=== PATIENT | female | born 1960 | race Caucasian/White ===

== ENCOUNTER → 2016-05-02 | Outpatient (CLI) | payer BC ==
[~2016-05-02] MED LIST: HYDR-3714 PO; REVIEWED
--- NOTE | 2016-05-02 15:51 | DIAGNOSTIC IMAGING REPORT ---
KUB CLINICAL HISTORY: N20.0 nephrocalcinosis COMPARISON STUDY: 01/12/2015 FINDINGS: Findings a rather wide. Diffuse nephrocalcinosis. Given differences in technique this appears similar. No significant calcifications in the para vertebral region or within the soft tissue pelvic region IMPRESSION: Bilateral nephrocalcinosis unchanged from the prior exam. Nonobstructive bowel pattern. Electronically signed by: Kaushal Eldridge M.D. 05/02/2016 3:49 PM Dictated Date/Time: 05/02/2016 3:48 PM
== END | disposition home or self-care (01) ==
LOC: C.RAD 15:21
PROVIDERS: ATTEND Urology
DX: N20.0 Calculus of kidney (principal)

== ENCOUNTER → 2016-06-14 | Outpatient (CLI) | payer BC ==
--- NOTE | 2016-06-14 16:52 | MAMMOGRAPHY REPORT ---
BILATERAL DIGITAL SCREENING MAMMOGRAM TOMOSYNTHESIS WITH CAD: 06/14/2016 CLINICAL HISTORY: Routine screening. Patient has no complaints. TECHNIQUE: Breast tomosynthesis in addition to standard 2D mammography was performed. Current study was also evaluated with a Computer Aided Detection (CAD) system. COMPARISON: Comparison is made to exams dated: 06/14/2015 mammogram, 06/08/2014 mammogram, 04/15/2013 mammogram, 04/14/2012 mammogram, 04/12/2011 mammogram, and 04/11/2010 mammogram - [facility]. BREAST COMPOSITION: The tissue of both breasts is heterogeneously dense, which may obscure small ma sses. FINDINGS: No suspicious masses, calcifications, or areas of architectural distortion are noted in e ither breast. There has been no significant interval change compared to prior exams. Scattered bilat eral benign-appearing calcifications are not significantly changed. IMPRESSION: ACR BI-RADS CATEGORY 2: BENIGN There is no mammographic evidence of malignancy. A 1 year screening mammogram is recommended. The p atient will receive written notification of the results. Approximately 10% of breast cancers are not detected with mammography. A negative mammographic repor t should not delay biopsy if a clinically suggestive mass is present. Savannah Ortiz M.D. ah/:06/14/2016 16:26:55 Material Chaser: Iqra NUNEZ)(M), [facility] letter sent: Normal 1/2 BI-RADS Code: ACR BI-RADS Category 2: Benign
== END | disposition home or self-care (01) ==
LOC: C.MAMM 15:33
PROVIDERS: ATTEND Obstetrics & Gynecology
DX: Z12.31 Encounter for screening mammogram for malignant neoplasm of breast (principal)

== ENCOUNTER → 2017-06-17 | Outpatient (CLI) | payer BC ==
--- NOTE | 2017-06-18 12:45 | MAMMOGRAPHY REPORT ---
BILATERAL DIGITAL SCREENING MAMMOGRAM TOMOSYNTHESIS WITH CAD: 06/17/2017 CLINICAL HISTORY: Routine screening. Patient has no complaints. TECHNIQUE: Breast tomosynthesis in addition to standard 2D mammography was performed. Current study was also evaluated with a Computer Aided Detection (CAD) system. COMPARISON: Comparison is made to exams dated: 06/14/2016 mammogram, 06/14/2015 mammogram, 06/08/2014 m ammogram, 04/15/2013 mammogram, 04/14/2012 mammogram, and 04/12/2011 mammogram - [facility]. BREAST COMPOSITION: The tissue of both breasts is heterogeneously dense, which may obscure small mas ses. FINDINGS: The parenchymal pattern is unchanged. No developing mass, architectural distortion or clus ter of suspicious microcalcifications is seen in either breast. There are stable benign calcificatio ns in both breasts. IMPRESSION: ACR BI-RADS CATEGORY 2: BENIGN There is no mammographic evidence of malignancy. A 1 year screening mammogram is recommended. The pa tient will receive written notification of the results. Approximately 10% of breast cancers are not detected with mammography. A negative mammographic report should not delay biopsy if a clinically suggestive mass is present. Jayda Pastor M.D. ay/:06/17/2017 15:34:17 Production Control Technologist: Roxana NUNEZ)(M), [facility] letter sent: Normal 1/2 BI-RADS Code: ACR BI-RADS Category 2: Benign
== END | disposition home or self-care (01) ==
LOC: C.MAMM 13:58
PROVIDERS: ATTEND Obstetrics & Gynecology
DX: Z12.31 Encounter for screening mammogram for malignant neoplasm of breast (principal)

== ENCOUNTER → 2017-06-25 | Outpatient (CLI) | payer BC | END | disposition home or self-care (01) | LOC: C.PAPS 13:43 | PROVIDERS: ATTEND Obstetrics & Gynecology | DX: Z01.419 Encounter for gynecological examination (general) (routine) without abnormal findings (principal) ==

== ENCOUNTER 2021-03-09 07:59 | Inpatient (IN) ==
[2021-03-09] MEDS ORDERED: SODIUM CHLORIDE 0.9% 500 ML IV ONE (08:15)
[2021-03-09 08:36] LABS: Basophils # (auto) 0.03 K/uL (0-0.2); Basophils % (auto) 0.3 %; Eosinophils # (auto) 0.14 K/uL (0-0.5); Eosinophils % (auto) 1.2 %; Hematocrit (blood only) 48.2 % (37-47); Hemoglobin 15.4 g/dL (12.0-16.0); Immature Granulocytes # (auto) 0.03 K/uL (0.00-0.02); Immature Granulocytes % (auto) 0.3 %; Lymphocytes # (auto) 1.66 K/uL (1.2-3.4); Lymphocytes % (auto) 14.5 %; Mean Corpuscular Hemoglobin 30.8 pg (25-34); Mean Corpuscular Volume 96.4 fL (80-100); Mean Platelet Volume 10.5 fL (7.4-10.4); Monocytes # (auto) 0.58 K/uL (0.11-0.59); Monocytes % (auto) 5.1 %; Neutrophils # (auto) 9.01 K/uL (1.4-6.5); Neutrophils % (auto) 78.6 %; Platelet Count 219 K/uL (130-400); RDW Coefficient of Variation 16.4 % (11.5-14.5); White Blood Count 11.45 K/uL (4.8-10.8)
--- NOTE | 2021-03-09 08:37 | XRay Report ---
XR chest 1V portable CLINICAL HISTORY: Chest Pain. Weakness for 5 days COMPARISON STUDY: 01/02/2019 TECHNIQUE: 1 view of the chest FINDINGS: Single frontal view of the chest demonstrates the cardiomediastinal silhouette to be within normal li mits. The lungs are clear of alveolar opacities. There is no evidence for pleural effusion. There is no evidence for vascular congestion. There is no acute osseous pathology. IMPRESSION: No acute cardiopulmonary disease. ACT 112: Negative or not required by law. Electronically signed by: Calvin House M.D. 03/09/2021 8:36 AM
[2021-03-09 09:03] LABS: Troponin I 7.26 ng/ml (0-0.04)
[2021-03-09 09:04] LABS: Albumin Globulin Ratio 1.5 (0.9-2); Albumin Level 4.5 gm/dl (3.4-5.0); BUN Creatinine Ratio 17.9 (10-20); Bilirubin,Total 1.3 mg/dl (0.2-1.0); Calcium 10.3 mg/dl (8.5-10.1); Creatinine Clr Calc Pharmacy 65.4 ml/min; Est GFR (African American) 62.7 ml/min; Est GFR (Non-African American) 54.1 ml/min; Magnesium 2.1 mg/dl (1.7-2.4); Phosphorus 3.3 mg/dl (2.5-4.9); Potassium 4.1 mmol/L (3.5-5.1); Total Protein 7.5 gm/dl (6.0-8.3)
[2021-03-09] MEDS ORDERED: ASPIRIN CHEW 324 MG PO STA (09:13)
[2021-03-09] MEDS ORDERED: OPTIRAY 320 125ml IV ONE (09:43)
--- NOTE | 2021-03-09 10:07 | CT Scan Report ---
CT ANGIOGRAPHY OF THE CHEST, PULMONARY EMBOLUS PROTOCOL CLINICAL HISTORY: Chest pain, shortness of breath, recent back surgery, r/o PE COMPARISON STUDY: Chest radiograph performed earlier today. Chest radiograph January 02, 2019. TECHNIQUE: Following IV administration of 120 mL of Optiray, helical axial images of the chest were o btained utilizing the pulmonary embolus protocol. Maximal intensity projections and sagittal and cor onal reformats were viewed on an independent 3D workstation. IV contrast was administered without co mplication. Automated exposure control was utilized for the study. A dose lowering technique was ut ilized adhering to the principles of ALARA. CT DOSE: 884.41 mGy.cm FINDINGS: No pulmonary emboli are identified. Moderate cardiomegaly is noted. There is no pericardia l effusion. Prominent right hilar lymph nodes are noted. Note is made of alveolar opacities within th e right lower lobe. There are also mild groundglass opacities within the right upper and right middle lobes as well as the left lung. There is no pneumothorax or pleural effusion. Central airways are pa tent. No acute fracture or suspicious lesion is identified within visualized portions of the bony tho rax. A 2.1 cm caudate lobe lesion was shown on prior studies. This is likely benign. IMPRESSION: 1. No pulmonary emboli identified. 2. Alveolar opacities within the right lower lobe and mild groundglass opacities within the remainder of the lungs. The findings represent an infectious process. 3. Prominent right hilar lymph nodes which are likely reactive. 4. Moderate cardiomegaly. ACT 112: Negative or not required by law. Electronically signed by: Jef Sanchez M.D. 03/09/2021 10:06 AM
[2021-03-09] MEDS ORDERED: NITROGLYCERIN SL 0.4 MG/TAB TAB ONE (10:13)
[2021-03-09] MEDS ORDERED: NITROGLYCERIN 2% OINTMENT 30GM TUBE ONE ×2 (10:16→22:29)
[2021-03-09] MEDS ORDERED: HEPARIN SOD (PORCINE) 1000 UNIT/ML ONE (10:20)
[2021-03-09] MEDS ORDERED: TICAGRELOR 90 MG TAB PO ONE ×2 (10:31→10:35)
[2021-03-09] MEDS ORDERED: HEPARIN SOD (PORCINE) 1000 UNIT/ML IV ONE (10:31)
[2021-03-09] MEDS ORDERED: cefTRIAXone SODIUM 2,000 MG/70 ML BAG IV STA (10:33)
[2021-03-09] MEDS ORDERED: FUROSEMIDE INJ 20 MG/2 ML VIAL IV ONE (10:33)
[2021-03-09] MEDS ORDERED: FUROSEMIDE 40 MG/4 ML VIAL IV ONE (10:35)
--- NOTE | 2021-03-09 11:02 | History & Physical Report ---
Date of Service March 09, 2021 Assessment & Plan (1) Acute HF (heart failure): Plan: Discussed with ICU given NSTEMI and heart failure requiring BiPAP with BP still not well controlled; discussed with Dr Eid and will start nitroglycerin IV drip and admit to ICU Unknown EF TTE ordered Lasix 40mg IV given in ER, continue this preliminarily daily but adjust per I&Os Nitroglycerin IV drip as below. Strict I&Os Daily weights (2) Non-ST elevation (NSTEMI) myocardial infarction: Plan: ASA and Brillinta given in the ER. Continue aspirin 81mg PO daily and Brilinta 90mg PO BID Heparin IV bolus given in ER, will add low dose IV drip (notably ordered without bolus as separate order done for this in ER) Metoprolol and lisinopril as below Increase atorvastatin from 20 to 80mg PO daily. Prior LDL 132 in August Lipid panel and HbA1C with AM labs (3) Acute respiratory failure with hypoxia: Plan: Suspect secondary to heart failure as above. Continue BIPAP/CPAP per ICU management pending improvement in fluid status. NPO for now. Rx for acute heart failure as above (4) Sinus tachycardia: Plan: Suspect compensatory from heart failure as above. Monitor on telemetry for arrhythmia in setting of NSTEMI (5) Hypertension: Plan: Lisinopril and metoprolol succinate taken this morning. Will continue her usual dosing of these in addition to nitro drip and furosemide as above. (6) Morbid obesity: Plan: Noted Plan: VTE Prophyalxis - Heparin IV drip as above Diet - NPO until improvement in respiratory status Disposition - admit to ICU Admission and Anticipated Discharge Date Admission Date: March 08, 2021 History of Present Illness Chief Complaint: Chest pain Primary Care Provider: Michelle Bowden MD Coby Zavala is a 60 year old female who presents to the ER with chest pain. She reports intermittent substernal chest pain radiating to the back for the last week lasting 10-15 minutes. Severity 10/10 at worst. Associated shortness of breath wheezing on lying flat. Exacerbated by exertion and lying flat. She denies any fever, chills or cough. She denies any history of heart attacks or stroke. No prior smoking history. In the ER after lying flat for the CT she became acutely worse with shortness of breath and chest pain and was placed on BiPAP, she was also initially given a 500ml NSS bolus. Since then after starting on BiPAP, Lasix and nitro paste she is currently chest pain free when seen. Initial troponin I elevated at 7.26 ng/ml. She was referred to medicine for admission and ongoing management of NSTEMI and acute heart failure. Allergies Allergy/AdvReac Type Severity Reaction Status Date / Time amoxicillin Allergy Intermediate Rash Verified 03/09/21 11:16 ampicillin Allergy Intermediate Rash Verified 03/09/21 11:16 Penicillins Allergy Intermediate Rash Verified 03/09/21 11:16 Home Medications Medication Instructions Recorded Confirmed Type multivitamin 1 tab PO QAM 03/10/20 03/09/21 History cholecalciferol (vitamin D3) 50 50 mcg PO DAILY 05/30/20 03/09/21 History mcg (2,000 unit) capsule atorvastatin 20 mg tablet 20 mg PO QPM #90 tab 09/13/20 03/09/21 Rx lisinopril 40 mg tablet 40 mg PO DAILY #90 tab 12/07/20 03/09/21 Rx metoprolol succinate 100 mg 100 mg PO DAILY #30 tab 12/15/20 03/09/21 Rx tablet,extended release 24 hr potassium citrate 10 mEq (1,080 10 meq PO BID #180 tab 02/13/21 03/09/21 Rx mg) tablet,extended release calcium carbonate 600 mg calcium 600 mg PO BID 03/09/21 03/09/21 History (1,500 mg) tablet (Calcium) gabapentin 300 mg capsule 300 mg PO QAM 03/09/21 03/09/21 History Past Med/Surg History Medical History Degenerative disc disease, lumbar Diverticular disease Elevated hemoglobin A1c Gout Hyperlipidemia Hypertension Kidney stones Lesion of liver Lumbar disc herniation Menopause Personal history of gout Polyarthritis Skin candidiasis Ureteral calculi Surgical History BCC (basal cell carcinoma of skin) H/O lithotripsy History of dilatation and curettage History of repair of rotator cuff History of tooth extraction S/P ankle joint replacement S/P foot surgery, right S/P left knee surgery Family History Father BCC (basal cell carcinoma of skin) Mother Bronchiectasis Brother Hypertension Grandmother (Maternal) Diabetes Other No family history of adverse response to anesthesia Denies family history of Ovarian cancer Prostate cancer Myocardial infarction Breast cancer Colorectal cancer Social History Smoking Status: Never smoker Second Hand Exposure: No; Hx Alcohol Use: No Hx Substance Use: No Preferred Language: Danish Communication Ability: Effective Visual Impairment: Limited Hearing Ability: Normal 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 Beliefs That Will Affect Care: None marital status: Single Current Living Situation: Alone current occupational status: retired Feels Safe at Home: Yes Dental Care, Regularly: Yes Seatbelt Use: always Assistive Devices: Contacts and Glasses Review of Systems Review of Systems: All systems reviewed & are unremarkable except as noted in HPI & below Physical Exam Constitutional: well developed and + acute distress (respiratory); + not well nourished Eyes: + anicteric sclerae; normal pupil size ENMT: external ear and nose normal, oropharynx normal Neck: trachea midline, no thyromegaly Respiratory: + respiratory distress, + retractions, + uses accessory muscles, + cough (occasional), able to speak in complete sentences (short) and + tachypneic; expiratory phase not prolonged, no audible wheezes and no stridor Auscultation: + rhonchi (throughout); no diminished lung sounds and no wheezes Cardiovascular: Rate/Rhythm: regular rhythm and + tachycardic Heart Sounds: no murmur Vessels: posterior tibial pulses present, dorsalis pedis pulses present and radial pulses present Extremities: normal capillary refill and + pedal edema (trace pre-tibial); no calf tenderness Gastrointestinal (Abdomen): Inspection/Auscultation: normal bowel sounds Percussion/Palpation: abdomen soft; abdomen nontender, no guarding and abdomen not rigid Musculoskeletal: no cyanosis or clubbing, extremities motor strength 5/5 Skin: no rashes, warm and dry Neurologic: moves all extremities and awake; not confused Psychiatric: A+Ox3, euthymic affect Results & Data Results & Data ([facility]) Vital Signs (Past 12 Hours) Vital Signs Temp Pulse Pulse Resp BP BP Pulse Ox 03/09/21 10:19 105 H 34 H 99 03/09/21 09:54 98 H 89 19 128/93 96 03/09/21 08:06 36.9 C 94 H 20 158/98 H 95 Laboratory Results Abnormal lab results 03/09/21 03/09/21 03/09/21 Range/Units 08:30 08:30 10:38 WBC 11.45 H (4.8-10.8) K/uL Hct 48.2 H (37-47) % RDW Std Deviation 58.0 H (36.4-46.3) fL RDW Coeff of Michelle 16.4 H (11.5-14.5) % MPV 10.5 H (7.4-10.4) fL Neut # (Auto) 9.01 H (1.4-6.5) K/uL Immature Gran # (Auto) 0.03 H (0.00-0.02) K/uL Glucose 126 H (70-99(Fasting)) mg/dl Calcium 10.3 H (8.5-10.1) mg/dl Total Bilirubin 1.3 H (0.2-1.0) mg/dl AST 63 H (13-39) U/L ALT 54 H (7-52) U/L Troponin I 7.26 H* (0-0.04) ng/ml B-Natriuretic Peptide 766 H (0-100) pg/ml Diagnostic Findings XR chest 1V portable CLINICAL HISTORY: Chest Pain. Weakness for 5 days COMPARISON STUDY: 01/02/2019 TECHNIQUE: 1 view of the chest FINDINGS: Single frontal view of the chest demonstrates the cardiomediastinal silhouette to be within normal limits. The lungs are clear of alveolar opacities. There is no evidence for pleural effusion. There is no evidence for vascular congestion. There is no acute osseous pathology. IMPRESSION: No acute cardiopulmonary disease. CT ANGIOGRAPHY OF THE CHEST, PULMONARY EMBOLUS PROTOCOL CLINICAL HISTORY: Chest pain, shortness of breath, recent back surgery, r/o PE COMPARISON STUDY: Chest radiograph performed earlier today. Chest radiograph January 02, 2019. TECHNIQUE: Following IV administration of 120 mL of Optiray, helical axial images of the chest were obtained utilizing the pulmonary embolus protocol. Maximal intensity projections and sagittal and coronal reformats were viewed on an independent 3D workstation. IV contrast was administered without complication. Automated exposure control was utilized for the study. A dose lowering technique was utilized adhering to the principles of ALARA. CT DOSE: 884.41 mGy.cm FINDINGS: No pulmonary emboli are identified. Moderate cardiomegaly is noted. There is no pericardial effusion. Prominent right hilar lymph nodes are noted. Note is made of alveolar opacities within the right lower lobe. There are also mild groundglass opacities within the right upper and right middle lobes as well as the left lung. There is no pneumothorax or pleural effusion. Central airways are patent. No acute fracture or suspicious lesion is identified within visualized portions of the bony thorax. A 2.1 cm caudate lobe lesion was shown on prior studies. This is likely benign. IMPRESSION: 1. No pulmonary emboli identified. 2. Alveolar opacities within the right lower lobe and mild groundglass opacities within the remainder of the lungs. The findings represent an infectious process. 3. Prominent right hilar lymph nodes which are likely reactive. 4. Moderate cardiomegaly. Medications Administered ER Medications Given: NSS 500ml bolus Aspirin 324mg PO Nitroglycerin 2% 1 inch patch heparin IV bolus 5000 IU Brilinta 180mg PO Ceftriaxone 2g IV (ordered but cancelled by myself prior to being given) ECG Findings: + other (T wave flattening laterally), + RBBB (incomplete), + ST depression (Lateral) and + T-wave inversion (Anterior) Comparison ECG Date: from (Jan 02, 2019) Change: the following changes noted (ischaemic changes as above are new) Code Status & VTE Plan Code Status Full VTE Prophylaxis Plan VTE Prophylaxis will be ordered: Yes PG Care Time/CCT Total # of Minutes Spent Total Time Spent with Patient: Total time spent is greater than 50% in coordination of care (as documented) at patient's floor/unit and/or counseling patient: Coding Level of Care Code 05172 Initial Inpt Care Lvl 3 Diagnoses Acute respiratory failure with hypoxia J96.01 Sinus tachycardia R00.0 Hypertension I10 Acute HF (heart failure) I50.9 Non-ST elevation (NSTEMI) myocardial infarction I21.4 Morbid obesity E66.01
[2021-03-09] MEDS ORDERED: STAT IV Infusion **Titration per Protocol STA (11:08)
[2021-03-09] MEDS ORDERED: Heparin IV Adult Wt-Based Low-Dose *NO* Bolus Protocol IV SCH (11:12)
[2021-03-09] MEDS ORDERED: HEPARIN SODIUM/DEXTROSE 25,000 UNITS/500 ML BAG IV SCH (11:15)
[2021-03-09] MEDS ORDERED: NITROGLYCERIN/D5W 100MCG/ML 250 ML IV SCH (11:15)
--- NOTE | 2021-03-09 11:16 | Cardiology Consultation ---
Date of Consultation March 09, 2021 Assessment & Plan (1) Non-ST elevation (NSTEMI) myocardial infarction: (2) Acute HF (heart failure): (3) Hypertension: (4) Sinus tachycardia: (5) Hyperlipidemia: ASSESSMENT/PLAN: 1. NSTEMI: Has had intermittent symptoms consistent with angina for the past week with more problems episode today. Currently chest pain free after nitroglycerin administration. Has received full-dose aspirin, Brilinta, heparin bolus. Took her daily dose of beta-karolina at home. Recommend high-intensity statin therapy. Discussed cardiac catheterization but given that she remains in respiratory distress on BiPAP and is now free from angina, would recommend imp rovement in her respiratory status as she would likely require mechanical ventilation to lay flat for the procedure at this point. Risks and benefits of cardiac catheterization discussed with her in detail. She is agreeable to undergo the procedure. If recurrent angina, would recommend urgent catheterization. 2. Acute heart failure: Whether she has systolic or diastolic heart failure is not yet clear. Recommend echo. She has received intravenous diuretic in the form of Lasix 40 mg. She appears to be diuresing. Continue nitrate therapy. 3. Hypertension: Blood pressure elevated. Likely in part due to her distress. This should improve with diuresis. Can initiate nitroglycerin drip to bridge ironworker helper in blood pressure control and to help keep her angina free. Has already received her home dose of lisinopril 40 mg at home and beta-karolina. Would not further titrate beta-karolina in the setting of acute CHF decompensation. Could also consider amlodipine. 4. Sinus tachycardia: Likely due to her distress. Should improve with improvement of her respiratory status. 5. Dyslipidemia: Recommend high-intensity statin therapy by further titrating her atorvastatin. 6. Disposition: Currently critically ill patient. Attempts were made to call her brother, Nilesh, as she was agreeable for him to be updated. Unfortunately, he did not answer his phone and there was no capability of leaving a message. Dr. Edmond of the admitting hospitalist service was contacted and we discussed patient care and plan. He plans on admitting her to the ICU for close monitoring. She has stated that she would like her brother, Nilesh Zavala, to make medical decisions for her if she is unable to do so. Addendum: Preliminary review of echo demonstrated large LAD wall motion abnormality. Revisited patient in the emergency department. She remained chest pain-free. BiPAP was removed and she was on mask. She was no longer short of breath. She was able to lay flat without shortness of breath or significant oxygen desaturation. We once again discussed cardiac catheterization and she wished very much to complete it today. Risks and benefits were once again discussed in detail. Cardiac catheterization to be performed today. 55 minutes of critical care time was spent evaluating, managing patient care, coordinating care, reviewing studies/chart, and attempting to contact family. History of Present Illness Reason for Consultation: NSTEMI Requesting Physician: Dr. Aguirre Attending Physician: Dr. Edmond History of Present Illness Ms. Zavala is a very pleasant 60-year-old female with a history significant for hypertension and dyslipidemia who presented to the emergency department on 03/09/2021 with chest pain and shortness of breath. She has been experiencing chest pain shortness of breath intermittently for the past week. Symptoms occurred with exertion and resolved within approximately 15 minutes with rest. She describes the substernal chest pain as a burning sensation that can radiate to the mid scapular area. This morning, she was awakened at approximately 5:00 a.m. with chest pain and shortness of breath. She presented to the emergency department and had an ECG performed at 8:13 a.m. which demonstrated sinus tachycardia with right bundle branch block and evidence of inferior DE. T-wave inversion was present in the anterior leads. Initial troponin was elevated at 7.26. Chest pain resolved with nitroglycerin x2 and then nitro paste. She was sent for CTA imaging by the emergency department to evaluate for pulmonary embolus and received 500 bolus of normal saline. Her respiratory status apparently worsened while laying flat for CTA. She was then given 40 mg of IV Lasix. She had received aspirin, Brilinta, and heparin bolus. Cardiology was consulted. At the time of Cardiology evaluation, she was chest pain-free following nitroglycerin. She was just receiving her Brilinta. Nursing staff reported that her oxygen saturation was in the 70s on 6 L OxyMask. She was placed on BiPAP and her oxygen saturation was 98%. Despite this, she still felt short of breath. She was notably hypertensive with systolic blood pressure in the 170s and heart rate in the 120s. She denies previous cardiac issues. She denies syncope, near-syncope, nausea, vomiting, diarrhea, melena, hematochezia, hematuria, palpitations, or fevers. She reports that her blood pressure is typically elevated in the medical setting but better controlled at home. She took her home lisinopril and metoprolol succinate today prior to coming to the emergency department. Review of systems: As above. Review of systems otherwise negative/unremarkable. Family history: No known premature CAD. Social history: She denies tobacco, alcohol, or drug abuse. She lives alone. She has not been . No children. She was unaccompanied in the emergency department. Her brother, Nilesh, is listed as her contact lens inspector. Allergies Allergy/AdvReac Type Severity Reaction Status Date / Time amoxicillin Allergy Intermediate Rash Verified 03/09/21 11:16 ampicillin Allergy Intermediate Rash Verified 03/09/21 11:16 Penicillins Allergy Intermediate Rash Verified 03/09/21 11:16 Home Medications Medication Instructions Recorded Confirmed Type multivitamin 1 tab PO QAM 03/10/20 03/09/21 History cholecalciferol (vitamin D3) 50 50 mcg PO DAILY 05/30/20 03/09/21 History mcg (2,000 unit) capsule atorvastatin 20 mg tablet 20 mg PO QPM #90 tab 09/13/20 03/09/21 Rx lisinopril 40 mg tablet 40 mg PO DAILY #90 tab 12/07/20 03/09/21 Rx metoprolol succinate 100 mg 100 mg PO DAILY #30 tab 12/15/20 03/09/21 Rx tablet,extended release 24 hr potassium citrate 10 mEq (1,080 10 meq PO BID #180 tab 02/13/21 03/09/21 Rx mg) tablet,extended release calcium carbonate 600 mg calcium 600 mg PO BID 03/09/21 03/09/21 History (1,500 mg) tablet (Calcium) gabapentin 300 mg capsule 300 mg PO QAM 03/09/21 03/09/21 History Patient History Medical History Degenerative disc disease, lumbar Diverticular disease HX Elevated hemoglobin A1c Gout Hyperlipidemia Hypertension Kidney stones Lesion of liver just monitoring Lumbar disc herniation Menopause Personal history of gout Polyarthritis Skin candidiasis Ureteral calculi Surgical History BCC (basal cell carcinoma of skin) with countless MOHS procedure H/O lithotripsy shock wave lithotripsy x5 History of dilatation and curettage History of repair of rotator cuff right History of tooth extraction S/P ankle joint replacement 03/18/19 Dr. Reno Nance at [facility], left S/P foot surgery, right plantar fascitis S/P left knee surgery Family History Father BCC (basal cell carcinoma of skin) Mother Bronchiectasis Brother Hypertension Grandmother (Maternal) Diabetes Other No family history of adverse response to anesthesia Denies family history of Ovarian cancer Prostate cancer Myocardial infarction Breast cancer Colorectal cancer Social History Smoking Status: Never smoker Second Hand Exposure: No; Hx Alcohol Use: No Hx Substance Use: No Preferred Language: American Communication Ability: Effective Visual Impairment: Limited Hearing Ability: Normal Wood Chopper Required: No Beliefs That Will Affect Care: None marital status: Single Current Living Situation: Alone current occupational status: retired Feels Safe at Home: Yes Dental Care, Regularly: Yes Seatbelt Use: always Assistive Devices: Contacts and Glasses Physical Exam Physical Exam: Gen.: Mild respiratory distress on BiPAP. Alert and oriented. HEENT: Anicteric sclera. Neck: Thick neck. Cardiac: PMI was nonpalpable. No ventricular heave. Regular and tachycardic. Heart sounds difficult to auscultate given coarse breath weighs sounds. No audible murmurs, rubs, or gallops. Pulmonary: Bilateral crackles throughout. Abdomen: Soft, nontender, nondistended, with normoactive bowel sounds. No bruits noted. Extremities: 2+ radial pulses bilaterally. 2+ posterior tibialis pulses bilaterally. 1+ bilateral lower extremity edema. No cyanosis. Psychiatric: Affect appears appropriate. Results & Data ([facility]) Vital Signs (Past 12 Hours) Vital Signs Temp Pulse Pulse Resp BP BP Pulse Ox 03/09/21 11:00 116 H 30 H 163/111 H 98 03/09/21 10:55 122 H 28 H 165/110 H 98 03/09/21 10:50 125 H 31 H 178/117 H 98 03/09/21 10:45 124 H 40 H 188/118 H 97 03/09/21 10:40 120 H 34 H 181/115 H 03/09/21 10:35 124 H 32 H 161/114 H 99 03/09/21 10:30 121 H 34 H 157/98 H 99 03/09/21 10:25 113 H 29 H 152/96 H 99 03/09/21 10:20 102 H 35 H 169/113 H 99 03/09/21 10:19 105 H 34 H 99 03/09/21 10:00 90 27 H 158/109 H 90 03/09/21 09:54 98 H 89 19 128/93 96 03/09/21 09:30 91 H 23 94 03/09/21 09:00 87 19 128/93 95 03/09/21 08:31 93 H 23 135/104 H 95 03/09/21 08:30 88 20 95 03/09/21 08:20 97 H 21 94 03/09/21 08:06 36.9 C 94 H 20 158/98 H 95 Laboratory Results Laboratory Results - last 24 hr 03/09/21 03/09/21 03/09/21 08:30 08:30 08:30 WBC 11.45 H RBC 5.00 Hgb 15.4 Hct 48.2 H MCV 96.4 MCH 30.8 MCHC 32.0 RDW Std Deviation 58.0 H RDW Coeff of Michelle 16.4 H Plt Count 219 MPV 10.5 H Immature Gran % (Auto) 0.3 Neut % (Auto) 78.6 Lymph % (Auto) 14.5 [place] % (Auto) 5.1 Eos % (Auto) 1.2 Baso % (Auto) 0.3 Neut # (Auto) 9.01 H Lymph # (Auto) 1.66 [place] # (Auto) 0.58 Eos # (Auto) 0.14 Baso # (Auto) 0.03 Immature Gran # (Auto) 0.03 H PT INR Sodium 140 Potassium 4.1 Chloride 103 Carbon Dioxide 28 Anion Gap 9 BUN 20 Creatinine 1.12 Est Cr Clr Drug Dosing 65.4 Est GFR ( Amer) 62.7 Est GFR (Non-Af Amer) 54.1 BUN/Creatinine Ratio 17.9 Glucose 126 H Lactate Calcium 10.3 H Phosphorus 3.3 Magnesium 2.1 Total Bilirubin 1.3 H AST 63 H ALT 54 H Alkaline Phosphatase 71 Troponin I 7.26 H* B-Natriuretic Peptide Total Protein 7.5 Albumin 4.5 Globulin 3.0 Albumin/Globulin Ratio 1.5 Lipase 40 Procalcitonin 0.11 SARS-CoV-2 (PCR) Influenza Type A (PCR) Influenza Type B (PCR) RSV (RT-PCR) 03/09/21 03/09/21 03/09/21 10:38 10:38 10:38 WBC RBC Hgb Hct MCV MCH MCHC RDW Std Deviation RDW Coeff of Michelle Plt Count MPV Immature Gran % (Auto) Neut % (Auto) Lymph % (Auto) [place] % (Auto) Eos % (Auto) Baso % (Auto) Neut # (Auto) Lymph # (Auto) [place] # (Auto) Eos # (Auto) Baso # (Auto) Immature Gran # (Auto) PT 11.2 INR 1.1 Sodium Potassium Chloride Carbon Dioxide Anion Gap BUN Creatinine Est Cr Clr Drug Dosing Est GFR ( Amer) Est GFR (Non-Af Amer) BUN/Creatinine Ratio Glucose Lactate 1.3 Calcium Phosphorus Magnesium Total Bilirubin AST ALT Alkaline Phosphatase Troponin I B-Natriuretic Peptide 766 H Total Protein Albumin Globulin Albumin/Globulin Ratio Lipase Procalcitonin SARS-CoV-2 (PCR) Influenza Type A (PCR) Influenza Type B (PCR) RSV (RT-PCR) 03/09/21 12:36 WBC RBC Hgb Hct MCV MCH MCHC RDW Std Deviation RDW Coeff of Michelle Plt Count MPV Immature Gran % (Auto) Neut % (Auto) Lymph % (Auto) [place] % (Auto) Eos % (Auto) Baso % (Auto) Neut # (Auto) Lymph # (Auto) [place] # (Auto) Eos # (Auto) Baso # (Auto) Immature Gran # (Auto) PT INR Sodium Potassium Chloride Carbon Dioxide Anion Gap BUN Creatinine Est Cr Clr Drug Dosing Est GFR ( Amer) Est GFR (Non-Af Amer) BUN/Creatinine Ratio Glucose Lactate Calcium Phosphorus Magnesium Total Bilirubin AST ALT Alkaline Phosphatase Troponin I B-Natriuretic Peptide Total Protein Albumin Globulin Albumin/Globulin Ratio Lipase Procalcitonin SARS-CoV-2 (PCR) NEGATIVE Influenza Type A (PCR) Negative Influenza Type B (PCR) Negative RSV (RT-PCR) Negative Diagnostic Findings ECG personally reviewed 03/09/2021 at 8:13 a.m.: Sinus tachycardia 105 beats per minute. RBBB. Inferior infarct. Possible anterior infarct. When compared to prior ECG on 01/02/2019, anterior infarct and anterior T-wave inversion now present. Inferior infarct now present. CTA chest 03/09/2021: No PE per Radiology. Right lower lobe alveolar opacities. Mild ground-glass opacities remainder of lungs. Medications Administered Current Inpatient Medications Nitroglycerin/Dextrose (Nitroglycerin/D5w 100 Mcg/Ml) 250 mls @ 3 mls/hr IV .Q24H ARYAN; Protocol Stop: 04/08/21 11:14 Last Admin: 03/09/21 12:10 Dose: 5 mcg/min, 3 mls/hr Documented by: Heparin Sodium/Dextrose (Heparin Sodium/Dextrose) 25,000 units in 500 mls @ 18 mls/hr IV .Q24H ARYAN; Protocol Stop: 04/08/21 11:14 Last Admin: 03/09/21 12:12 Dose: Not Given Documented by: PG Care Time/CCT Total # of Minutes Spent Total Time Spent with Patient: Total time spent is greater than 50% in coordination of care (as documented) at patient's floor/unit and/or counseling patient: Critical Care Time: Yes Total Critical Care Time: 55 Coding Level of Care Code None Diagnoses Non-ST elevation (NSTEMI) myocardial infarction I21.4 Acute HF (heart failure) I50.9 Hypertension I10 Sinus tachycardia R00.0 Hyperlipidemia E78.5 Additional Codes Critical Care Time - Critical Care Time: Yes ([id number]) Time Spent (min) 55 Comment [id number]
--- NOTE | 2021-03-09 11:38 | Emergency Department Note ---
Impression & Plan Non-ST elevation (NSTEMI) myocardial infarction, Hypertension, Acute respiratory failure with hypoxia, Flash pulmonary edema, Exertional chest pain, Elevated troponin ED Provider Note NAME: KRISTIN CHANG AGE: 60 SEX: F ARRIVES VIA: Walk-In INFORMANT: Patient ED PROVIDER(S): Westley Aguirre MD CHIEF COMPLAINT: Chest pain with exertion PLAN: Disposition: Admit MEDICAL DECISION MAKING: The patient is a pleasant 60-year-old woman with a past medical history of hypertension, obesity, hyperlipidemia who presents to the emergency department for evaluation of chest pain/pressure and dyspnea with exertion that has developed over the past week. She reports a consistent pattern where she will feel the symptoms with exertion and then symptoms will bettie with rest. She reports she has been having the dyspneic component of the symptoms for months in the setting of having back surgery last November. She attributed this to deconditioning/being out of shape following her surgery. However she reports the pattern of pain is new over the past week. She denies any pain with inspiration. She denies any history of blood clots. She denies any prior cardiac history. She denies any recent fevers, chills, cough, congestion, GI or symptoms. Her last episode of symptoms were at 5 AM this morning when she was walking and calmed over the course of 10 minutes after resting. She denies any pain at this time. On arrival the patient is relatively well-appearing in no acute distress, afebrile, heart rate in the 90s and blood pressure 150s/90s and vital signs otherwise stable. O2 saturations 95% on room air. On exam the patient appears euvolemic. Lungs are clear. EKG demonstrates right bundle branch block without overt acute ischemia. Chest x-ray was negative for acute cardiopulmonary process. WBC 11.4K, nonspecific. H/H15.4/40.2 similar to prior values. Platelets within normal limits. Chemistry without metabolic acidosis. Electrolytes without significant abnormality. Total bilirubin 1.3, nonspecific. AST and ALT 63 and 54, respectively, also nonspecific. Patient's initial troponin was 7.26. Lipase is not elevated. Given the patient's recent surgery with symptoms that have worsened since then as well as with elevated troponin CTA of the chest was performed to exclude PE. This was negative for PE however does show alveolar opacities in the right lower lobe with mild groundglass opacities elsewhere that is suspicious for infectious process. There is a prominent right hilar lymph node that is likely reactive. Following CT, the patient returned to her room and then began to report return of chest pain and shortness of breath which progressed rapidly and the patient subsequently had O2 saturation decline to the low 80s she appeared diaphoretic and in distress. Repeat EKG did not demonstrate any dynamic changes. Lung sounds appear diminished. I did perform a limited bedside ultrasound and lungs demonstrated diffuse B-lines suggestive of pulmonary edema. Patient was placed on BiPAP following 100% nonrebreather, she was given nitro glycerin SL followed by paste and she gradually demonstrated improvement in her symptoms. Serial EKGs performed at this time did not demonstrate ST elevation. However given her elevated troponin and symptoms that changed acutely, there is concern for acute MT in the setting of her pattern of unstable angina. The patient was additionally given 5000 units of heparin as well as 180 mg of ticagrelor. She had already been given aspirin previously. I did review the case with Dr. Chaney who evaluated the patient at bedside and agrees with plan for catheterization. Appreciate recommendations for additional diuresis to stabilize the patient for procedure. Given question of pneumonia on CT blood cultures and procalcitonin were ordered was was empiric ceftriaxone however she continues to deny any preceding infectious symptoms. Case was d/w Dr. Edmond [facility] hospitalist who will evaluate the patient for admission. Triage Nursing notes reviewed and agree them. Prior medical records reviewed Vital Signs: reviewed and remarkable for hypoxia, hypertension. Differential diagnosis: Cardiac ischemia, aortic dissection, pulmonary embolism, pneumothorax, pneumonia, pericarditis, myocarditis, esophageal rupture, GERD, cholecystitis, pancreatitis, musculoskeletal, as well as other pathologies. ER treatment provided: See below. Diagnostics interpreted by il: ECG 0813: Sinus tachycardia, 105 bpm, incomplete right bundle branch block, inferior infarct. No overt ST elevation or depression, QTC 486, QRS 118. Cardiac Monitoring: An order for continuous cardiac monitoring was placed and demonstrated Sinus tachycardia, 105 bpm, PACs. Laboratory studies: See below Imaging studies: See below Consultation(s): Dr. Chaney, interventional cardiology. Dr. Edmond, [facility] hospitalist. HPI: The patient is a pleasant 60-year-old woman with a past medical history of hypertension, obesity, hyperlipidemia who presents to the emergency department for evaluation of chest pain/pressure and dyspnea with exertion that has developed over the past week. She reports a consistent pattern where she will feel the symptoms with exertion and then symptoms will bettie with rest. She reports she has been having the dyspneic component of the symptoms for months in the setting of having back surgery last November. She attributed this to deconditioning/being out of shape following her surgery. However she reports the pattern of pain is new over the past week. She denies any pain with inspiration. She denies any history of blood clots. She denies any prior cardiac history. She denies any recent fevers, chills, cough, congestion, GI or symptoms. Her last episode of symptoms were at 5 AM this morning when she was walking and calmed over the course of 10 minutes after resting. She denies any pain at this time. ROS: See above HPI for pertinent positives & negatives. A total of 10 systems reviewed and were otherwise negative. PAST MEDICAL HISTORY:See Below PAST SURGICAL HISTORY:See Below FAMILY HISTORY:See Below SOCIAL HISTORY:See Below HOME MEDICATIONS:See Below ALLERGIES:See Below VITALS:See Below PHYSICAL EXAMINATION: GENERAL: Awake, alert, well-appearing, in no distress, BMI 43.2. HENT: Normocephalic, atraumatic. Oropharynx unremarkable. EYES: Normal conjunctiva. Sclera non-icteric. NECK: Supple. No nuchal rigidity. FROM. No JVD. RESPIRATORY: Clear to auscultation. CARDIAC: Regular rate, normal rhythm. Extremities warm and well perfused. Pulses equal. ABDOMEN: Soft, non-distended. No tenderness to palpation. No rebound or guar ding. No masses. RECTAL: Deferred. MUSCULOSKELETAL: Chest examination reveals no tenderness. The back is symmetrical on inspection without obvious abnormality. There is no CVA tenderness to palpation. No joint edema. LOWER EXTREMITIES: Calves are equal size bilaterally and non-tender. No edema. No discoloration. NEURO: Normal sensorium. No sensory or motor deficits noted. SKIN: No rash or jaundice noted. ED COURSE: Critical Care: I have personally spent greater than 135 minutes of critical care time in the direct management of this patient. This includes bedside care, interpretation of diagnostic studies, and testing, discussion with consultants, patient, and family members, and other required patient management activities. This 135 minutes is in excess of all separately billable procedures. Westley Aguirre MD Past Med/Surg History Medical History Degenerative disc disease, lumbar Diverticular disease HX Elevated hemoglobin A1c Gout Hyperlipidemia Hypertension Kidney stones Lesion of liver just monitoring Lumbar disc herniation Menopause Personal history of gout Polyarthritis Skin candidiasis Ureteral calculi Surgical History BCC (basal cell carcinoma of skin) with countless MOHS procedure H/O lithotripsy shock wave lithotripsy x5 History of dilatation and curettage History of repair of rotator cuff right History of tooth extraction S/P ankle joint replacement 03/18/19 Dr. Reno Nance at [facility], left S/P foot surgery, right plantar fascitis S/P left knee surgery Family History Father BCC (basal cell carcinoma of skin) Mother Bronchiectasis Brother Hypertension Grandmother (Maternal) Diabetes Other No family history of adverse response to anesthesia Denies family history of Ovarian cancer Prostate cancer Myocardial infarction Breast cancer Colorectal cancer Social History Smoking Status: Never smoker Second Hand Exposure: No; Hx Alcohol Use: No Hx Substance Use: No Preferred Language: Mongolian Communication Ability: Effective Visual Impairment: Limited Hearing Ability: Normal Contact Center Associate Required: No Beliefs That Will Affect Care: None marital status: Single Current Living Situation: Alone current occupational status: retired Feels Safe at Home: Yes Dental Care, Regularly: Yes Seatbelt Use: always Assistive Devices: Contacts and Glasses Allergies Allergies Allergy/AdvReac Type Severity Reaction Status Date / Time amoxicillin Allergy Intermediate Rash Verified 03/09/21 11:16 ampicillin Allergy Intermediate Rash Verified 03/09/21 11:16 Penicillins Allergy Intermediate Rash Verified 03/09/21 11:16 Home Meds Home Medications Medication Instructions Recorded Confirmed multivitamin 1 tab PO QAM 03/10/20 03/09/21 cholecalciferol (vitamin D3) 50 50 mcg PO DAILY 05/30/20 03/09/21 mcg (2,000 unit) capsule calcium carbonate 600 mg calcium 600 mg PO BID 03/09/21 03/09/21 (1,500 mg) tablet (Calcium) gabapentin 300 mg capsule 300 mg PO QAM 03/09/21 03/09/21 Previous Rx's Medication Instructions Recorded atorvastatin 20 mg tablet 20 mg PO QPM #90 tab 09/13/20 lisinopril 40 mg tablet 40 mg PO DAILY #90 tab 12/07/20 metoprolol succinate 100 mg 100 mg PO DAILY #30 tab 12/15/20 tablet,extended release 24 hr potassium citrate 10 mEq (1,080 10 meq PO BID #180 tab 02/13/21 mg) tablet,extended release Results & Data (ED) Vital Signs Vital Signs - 24 hr 03/09/21 08:06 03/09/21 08:20 03/09/21 08:30 Temperature 36.9 C Temperature Source Oral Pulse Rate 94 H 97 H 88 Pulse Rate [Apical] Pulse Rate from SpO2 Sensor 96 H 89 Pulse Rhythm Pulse Rhythm [Apical] Pulse Strength [Apical] Respiratory Rate 20 21 20 Respiratory Effort / Characteristics Respiratory Depth Respiratory Pattern Blood Pressure 158/98 H Blood Pressure [Left Arm] Blood Pressure Mean 118 Blood Pressure Mean [Left Arm] Blood Pressure Position [Left Arm] Pulse Oximetry 95 94 95 Oxygen Delivery Method Room Air Oxygen Flow Rate Fraction of Inspired Oxygen Sepsis Recent Fever Within 48 Hours No Sepsis New/Unexplained Change in Mental Status No Sepsis Action Taken by Nursing No Action Required Oxygen Flow Rate - Titration Pulse Oximetry Post Tiitration 03/09/21 08:31 03/09/21 09:00 03/09/21 09:30 Temperature Temperature Source Pulse Rate 93 H 87 91 H Pulse Rate [Apical] Pulse Rate from SpO2 Sensor 92 H 85 91 H Pulse Rhythm Pulse Rhythm [Apical] Pulse Strength [Apical] Respiratory Rate 23 19 23 Respiratory Effort / Characteristics Respiratory Depth Respiratory Pattern Blood Pressure 135/104 H 128/93 Blood Pressure [Left Arm] Blood Pressure Mean 114 104 Blood Pressure Mean [Left Arm] Blood Pressure Position [Left Arm] Pulse Oximetry 95 95 94 Oxygen Delivery Method Oxygen Flow Rate Fraction of Inspired Oxygen Sepsis Recent Fever Within 48 Hours Sepsis New/Unexplained Change in Mental Status Sepsis Action Taken by Nursing Oxygen Flow Rate - Titration Pulse Oximetry Post Tiitration 03/09/21 09:54 03/09/21 10:00 03/09/21 10:19 Temperature Temperature Source Pulse Rate 98 H 90 105 H Pulse Rate [Apical] 89 Pulse Rate from SpO2 Sensor 98 H Pulse Rhythm Regular Pulse Rhythm [Apical] Regular Pulse Strength [Apical] Normal Respiratory Rate 19 27 H 34 H Respiratory Effort / Characteristics Non-Labored Short of Breath Respiratory Depth Normal Respiratory Pattern Tachypnea Blood Pressure 158/109 H Blood Pressure [Left Arm] 128/93 Blood Pressure Mean 125 Blood Pressure Mean [Left Arm] 104 Blood Pressure Position [Left Arm] Lying Pulse Oximetry 96 90 99 Oxygen Delivery Method Nasal Cannula Oxygen Flow Rate 3 Fraction of Inspired Oxygen 100 Sepsis Recent Fever Within 48 Hours Sepsis New/Unexplained Change in Mental Status Sepsis Action Taken by Nursing Oxygen Flow Rate - Titration 3 Pulse Oximetry Post Tiitration 96 03/09/21 10:20 03/09/21 10:25 03/09/21 10:30 Temperature Temperature Source Pulse Rate 102 H 113 H 121 H Pulse Rate [Apical] Pulse Rate from SpO2 Sensor 112 H 113 H 119 H Pulse Rhythm Pulse Rhythm [Apical] Pulse Strength [Apical] Respiratory Rate 35 H 29 H 34 H Respiratory Effort / Characteristics Respiratory Depth Respiratory Pattern Blood Pressure 169/113 H 152/96 H 157/98 H Blood Pressure [Left Arm] Blood Pressure Mean 131 114 117 Blood Pressure Mean [Left Arm] Blood Pressure Position [Left Arm] Pulse Oximetry 99 99 99 Oxygen Delivery Method Oxygen Flow Rate Fraction of Inspired Oxygen Sepsis Recent Fever Within 48 Hours Sepsis New/Unexplained Change in Mental Status Sepsis Action Taken by Nursing Oxygen Flow Rate - Titration Pulse Oximetry Post Tiitration 03/09/21 10:35 03/09/21 10:40 03/09/21 10:45 Temperature Temperature Source Pulse Rate 124 H 120 H 124 H Pulse Rate [Apical] Pulse Rate from SpO2 Sensor 121 H 123 H Pulse Rhythm Pulse Rhythm [Apical] Pulse Strength [Apical] Respiratory Rate 32 H 34 H 40 H Respiratory Effort / Characteristics Respiratory Depth Respiratory Pattern Blood Pressure 161/114 H 181/115 H 188/118 H Blood Pressure [Left Arm] Blood Pressure Mean 129 137 141 Blood Pressure Mean [Left Arm] Blood Pressure Position [Left Arm] Pulse Oximetry 99 97 Oxygen Delivery Method Oxygen Flow Rate Fraction of Inspired Oxygen Sepsis Recent Fever Within 48 Hours Sepsis New/Unexplained Change in Mental Status Sepsis Action Taken by Nursing Oxygen Flow Rate - Titration Pulse Oximetry Post Tiitration 03/09/21 10:50 03/09/21 10:55 03/09/21 11:00 Temperature Temperature Source Pulse Rate 125 H 122 H 116 H Pulse Rate [Apical] Pulse Rate from SpO2 Sensor 128 H 121 H 115 H Pulse Rhythm Pulse Rhythm [Apical] Pulse Strength [Apical] Respiratory Rate 31 H 28 H 30 H Respiratory Effort / Characteristics Respiratory Depth Respiratory Pattern Blood Pressure 178/117 H 165/110 H 163/111 H Blood Pressure [Left Arm] Blood Pressure Mean 137 128 128 Blood Pressure Mean [Left Arm] Blood Pressure Position [Left Arm] Pulse Oximetry 98 98 98 Oxygen Delivery Method Oxygen Flow Rate Fraction of Inspired Oxygen Sepsis Recent Fever Within 48 Hours Sepsis New/Unexplained Change in Mental Status Sepsis Action Taken by Nursing Oxygen Flow Rate - Titration Pulse Oximetry Post Tiitration 03/09/21 11:05 03/09/21 11:10 03/09/21 11:15 Temperature Temperature Source Pulse Rate 115 H 109 H 112 H Pulse Rate [Apical] Pulse Rate from SpO2 Sensor 115 H 110 H 111 H Pulse Rhythm Pulse Rhythm [Apical] Pulse Strength [Apical] Respiratory Rate 26 H 28 H 34 H Respiratory Effort / Characteristics Spontaneous Respiratory Depth Normal Respiratory Pattern Tachypnea Blood Pressure 162/106 H 149/105 H 165/98 H Blood Pressure [Left Arm] Blood Pressure Mean 124 119 120 Blood Pressure Mean [Left Arm] Blood Pressure Position [Left Arm] Pulse Oximetry 98 98 98 Oxygen Delivery Method Oxygen Flow Rate Fraction of Inspired Oxygen 90 Sepsis Recent Fever Within 48 Hours Sepsis New/Unexplained Change in Mental Status Sepsis Action Taken by Nursing Oxygen Flow Rate - Titration Pulse Oximetry Post Tiitration 03/09/21 11:20 03/09/21 11:25 03/09/21 11:30 Temperature Temperature Source Pulse Rate 108 H 111 H 109 H Pulse Rate [Apical] Pulse Rate from SpO2 Sensor 108 H 110 H 106 H Pulse Rhythm Pulse Rhythm [Apical] Pulse Strength [Apical] Respiratory Rate 23 33 H 29 H Respiratory Effort / Characteristics Respiratory Depth Respiratory Pattern Blood Pressure 151/100 H 138/105 H 156/105 H Blood Pressure [Left Arm] Blood Pressure Mean 117 116 122 Blood Pressure Mean [Left Arm] Blood Pressure Position [Left Arm] Pulse Oximetry 98 98 98 Oxygen Delivery Method Oxygen Flow Rate Fraction of Inspired Oxygen Sepsis Recent Fever Within 48 Hours Sepsis New/Unexplained Change in Mental Status Sepsis Action Taken by Nursing Oxygen Flow Rate - Titration Pulse Oximetry Post Tiitration 03/09/21 11:35 03/09/21 11:40 03/09/21 11:45 Temperature Temperature Source Pulse Rate 108 H 102 H 102 H Pulse Rate [Apical] Pulse Rate from SpO2 Sensor 107 H 103 H 102 H Pulse Rhythm Pulse Rhythm [Apical] Pulse Strength [Apical] Respiratory Rate 28 H 21 22 Respiratory Effort / Characteristics Respiratory Depth Respiratory Pattern Blood Pressure 154/94 H 145/95 H 134/91 Blood Pressure [Left Arm] Blood Pressure Mean 114 111 105 Blood Pressure Mean [Left Arm] Blood Pressure Position [Left Arm] Pulse Oximetry 98 98 98 Oxygen Delivery Method Oxygen Flow Rate Fraction of Inspired Oxygen Sepsis Recent Fever Within 48 Hours Sepsis New/Unexplained Change in Mental Status Sepsis Action Taken by Nursing Oxygen Flow Rate - Titration Pulse Oximetry Post Tiitration 03/09/21 11:50 03/09/21 11:55 03/09/21 12:00 Temperature Temperature Source Pulse Rate 103 H 101 H 99 H Pulse Rate [Apical] Pulse Rate from SpO2 Sensor 100 H 100 H Pulse Rhythm Pulse Rhythm [Apical] Pulse Strength [Apical] Respiratory Rate 23 25 H 17 Respiratory Effort / Characteristics Respiratory Depth Respiratory Pattern Blood Pressure 140/91 139/94 135/91 Blood Pressure [Left Arm] Blood Pressure Mean 107 109 105 Blood Pressure Mean [Left Arm] Blood Pressure Position [Left Arm] Pulse Oximetry 97 98 Oxygen Delivery Method Oxygen Flow Rate Fraction of Inspired Oxygen Sepsis Recent Fever Within 48 Hours Sepsis New/Unexplained Change in Mental Status Sepsis Action Taken by Nursing Oxygen Flow Rate - Titration Pulse Oximetry Post Tiitration 03/09/21 12:05 03/09/21 12:10 03/09/21 12:15 Temperature Temperature Source Pulse Rate 102 H 103 H 100 H Pulse Rate [Apical] Pulse Rate from SpO2 Sensor 102 H 102 H 100 H Pulse Rhythm Pulse Rhythm [Apical] Pulse Strength [Apical] Respiratory Rate 28 H 23 23 Respiratory Effort / Characteristics Respiratory Depth Respiratory Pattern Blood Pressure 134/91 Blood Pressure [Left Arm] Blood Pressure Mean 105 Blood Pressure Mean [Left Arm] Blood Pressure Position [Left Arm] Pulse Oximetry 98 98 97 Oxygen Delivery Method Oxygen Flow Rate Fraction of Inspired Oxygen Sepsis Recent Fever Within 48 Hours Sepsis New/Unexplained Change in Mental Status Sepsis Action Taken by Nursing Oxygen Flow Rate - Titration Pulse Oximetry Post Tiitration 03/09/21 12:20 03/09/21 12:25 03/09/21 12:30 Temperature Temperature Source Pulse Rate 101 H 99 H 99 H Pulse Rate [Apical] Pulse Rate from SpO2 Sensor 100 H 99 H 99 H Pulse Rhythm Pulse Rhythm [Apical] Pulse Strength [Apical] Respiratory Rate 19 19 22 Respiratory Effort / Characteristics Respiratory Depth Respiratory Pattern Blood Pressure 134/93 Blood Pressure [Left Arm] Blood Pressure Mean 106 Blood Pressure Mean [Left Arm] Blood Pressure Position [Left Arm] Pulse Oximetry 98 99 98 Oxygen Delivery Method Oxygen Flow Rate Fraction of Inspired Oxygen Sepsis Recent Fever Within 48 Hours Sepsis New/Unexplained Change in Mental Status Sepsis Action Taken by Nursing Oxygen Flow Rate - Titration Pulse Oximetry Post Tiitration 03/09/21 12:45 03/09/21 13:00 03/09/21 13:15 Temperature Temperature Source Pulse Rate 96 H 158 H 97 H Pulse Rate [Apical] Pulse Rate from SpO2 Sensor 104 H 98 H Pulse Rhythm Pulse Rhythm [Apical] Pulse Strength [Apical] Respiratory Rate 21 20 25 H Respiratory Effort / Characteristics Non-Labored Spontaneous Respiratory Depth Normal Respiratory Pattern Regular Blood Pressure 132/93 132/82 114/84 Blood Pressure [Left Arm] Blood Pressure Mean 106 98 94 Blood Pressure Mean [Left Arm] Blood Pressure Position [Left Arm] Pulse Oximetry 94 88 L Oxygen Delivery Method Oxym[place] Oxygen Flow Rate 6 Fraction of Inspired Oxygen Sepsis Recent Fever Within 48 Hours Sepsis New/Unexplained Change in Mental Status Sepsis Action Taken by Nursing Oxygen Flow Rate - Titration Pulse Oximetry Post Tiitration 03/09/21 13:30 03/09/21 13:45 03/09/21 14:00 Temperature Temperature Source Pulse Rate 94 H 91 H 93 H Pulse Rate [Apical] Pulse Rate from SpO2 Sensor 87 91 H Pulse Rhythm Pulse Rhythm [Apical] Pulse Strength [Apical] Respiratory Rate 19 23 19 Respiratory Effort / Characteristics Respiratory Depth Respiratory Pattern Blood Pressure 118/75 121/76 110/72 Blood Pressure [Left Arm] Blood Pressure Mean 89 91 84 Blood Pressure Mean [Left Arm] Blood Pressure Position [Left Arm] Pulse Oximetry 93 91 Oxygen Delivery Method Oxygen Flow Rate Fraction of Inspired Oxygen Sepsis Recent Fever Within 48 Hours Sepsis New/Unexplained Change in Mental Status Sepsis Action Taken by Nursing Oxygen Flow Rate - Titration Pulse Oximetry Post Tiitration 03/09/21 14:15 03/09/21 14:30 03/09/21 14:39 Temperature Temperature Source Pulse Rate 98 H Pulse Rate [Apical] 68 Pulse Rate from SpO2 Sensor 98 H Pulse Rhythm Pulse Rhythm [Apical] Pulse Strength [Apical] Respiratory Rate 23 20 Respiratory Effort / Characteristics Non-Labored Respiratory Depth Normal Respiratory Pattern Blood Pressure 131/77 Blood Pressure [Left Arm] 166/98 H Blood Pressure Mean 95 Blood Pressure Mean [Left Arm] 120 Blood Pressure Position [Left Arm] Lying Pulse Oximetry 93 98 Oxygen Delivery Method Oxymask Room Air Oxygen Flow Rate 6 Fraction of Inspired Oxygen Sepsis Recent Fever Within 48 Hours Sepsis New/Unexplained Change in Mental Status Sepsis Action Taken by Nursing Oxygen Flow Rate - Titration Pulse Oximetry Post Tiitration Laboratory Data Attestation: I reviewed the patient's lab results. Result diagrams: 03/09/21 08:30 03/09/21 08:30 Lab Results 03/09/21 03/09/21 03/09/21 Range/Units 08:30 08:30 08:30 WBC 11.45 H (4.8-10.8) K/uL RBC 5.00 (4.2-5.4) M/uL Hgb 15.4 (12.0-16.0) g/dL Hct 48.2 H (37-47) % MCV 96.4 (80-100) fL MCH 30.8 (25-34) pg MCHC 32.0 (32-36) g/dL RDW Std Deviation 58.0 H (36.4-46.3) fL RDW Coeff of Michelle 16.4 H (11.5-14.5) % Plt Count 219 (130-400) K/uL MPV 10.5 H (7.4-10.4) fL Immature Gran % (Auto) 0.3 % Neut % (Auto) 78.6 % Lymph % (Auto) 14.5 % [place] % (Auto) 5.1 % Eos % (Auto) 1.2 % Baso % (Auto) 0.3 % Neut # (Auto) 9.01 H (1.4-6.5) K/uL Lymph # (Auto) 1.66 (1.2-3.4) K/uL [place] # (Auto) 0.58 (0.11-0.59) K/uL Eos # (Auto) 0.14 (0-0.5) K/uL Baso # (Auto) 0.03 (0-0.2) K/uL Immature Gran # (Auto) 0.03 H (0.00-0.02) K/uL PT (9.0-12.0) Seconds INR (0.9-1.1) Sodium 140 (136-145) mmol/L Potassium 4.1 (3.5-5.1) mmol/L Chloride 103 (98-107) mmol/L Carbon Dioxide 28 (21-32) mmol/L Anion Gap 9 (3-11) BUN 20 (6-23) mg/dl Creatinine 1.12 (0.6-1.2) mg/dl Est Cr Clr Drug Dosing 65.4 ml/min Est GFR ( Amer) 62.7 ml/min Est GFR (Non-Af Amer) 54.1 ml/min BUN/Creatinine Ratio 17.9 (10-20) Glucose 126 H (70-99(Fasting)) mg/dl Lactate (0.4-2.0) mmol/L Calcium 10.3 H (8.5-10.1) mg/dl Phosphorus 3.3 (2.5-4.9) mg/dl Magnesium 2.1 (1.7-2.4) mg/dl Total Bilirubin 1.3 H (0.2-1.0) mg/dl AST 63 H (13-39) U/L ALT 54 H (7-52) U/L Alkaline Phosphatase 71 (34-104) U/L Troponin I 7.26 H* (0-0.04) ng/ml B-Natriuretic Peptide (0-100) pg/ml Total Protein 7.5 (6.0-8.3) gm/dl Albumin 4.5 (3.4-5.0) gm/dl Globulin 3.0 (2.5-4.0) gm/dl Albumin/Globulin Ratio 1.5 (0.9-2) Lipase 40 (11-82) U/L Procalcitonin 0.11 (0-0.5) ng/ml SARS-CoV-2 (PCR) (Negative) Influenza Type A (PCR) (Neg) Influenza Type B (PCR) (Neg) RSV (RT-PCR) (Neg) 03/09/21 03/09/21 03/09/21 Range/Units 10:38 10:38 10:38 WBC (4.8-10.8) K/uL RBC (4.2-5.4) M/uL Hgb (12.0-16.0) g/dL Hct (37-47) % MCV (80-100) fL MCH (25-34) pg MCHC (32-36) g/dL RDW Std Deviation (36.4-46.3) fL RDW Coeff of Michelle (11.5-14.5) % Plt Count (130-400) K/uL MPV (7.4-10.4) fL Immature Gran % (Auto) % Neut % (Auto) % Lymph % (Auto) % [place] % (Auto) % Eos % (Auto) % Baso % (Auto) % Neut # (Auto) (1.4-6.5) K/uL Lymph # (Auto) (1.2-3.4) K/uL [place] # (Auto) (0.11-0.59) K/uL Eos # (Auto) (0-0.5) K/uL Baso # (Auto) (0-0.2) K/uL Immature Gran # (Auto) (0.00-0.02) K/uL PT 11.2 (9.0-12.0) Seconds INR 1.1 (0.9-1.1) Sodium (136-145) mmol/L Potassium (3.5-5.1) mmol/L Chloride (98-107) mmol/L Carbon Dioxide (21-32) mmol/L Anion Gap (3-11) BUN (6-23) mg/dl Creatinine (0.6-1.2) mg/dl Est Cr Clr Drug Dosing ml/min Est GFR ( Amer) ml/min Est GFR (Non-Af Amer) ml/min BUN/Creatinine Ratio (10-20) Glucose (70-99(Fasting)) mg/dl Lactate 1.3 (0.4-2.0) mmol/L Calcium (8.5-10.1) mg/dl Phosphorus (2.5-4.9) mg/dl Magnesium (1.7-2.4) mg/dl Total Bilirubin (0.2-1.0) mg/dl AST (13-39) U/L ALT (7-52) U/L Alkaline Phosphatase (34-104) U/L Troponin I (0-0.04) ng/ml B-Natriuretic Peptide 766 H (0-100) pg/ml Total Protein (6.0-8.3) gm/dl Albumin (3.4-5.0) gm/dl Globulin (2.5-4.0) gm/dl Albumin/Globulin Ratio (0.9-2) Lipase (11-82) U/L Procalcitonin (0-0.5) ng/ml SARS-CoV-2 (PCR) (Negative) Influenza Type A (PCR) (Neg) Influenza Type B (PCR) (Neg) RSV (RT-PCR) (Neg) 03/09/21 Range/Units 12:36 WBC (4.8-10.8) K/uL RBC (4.2-5.4) M/uL Hgb (12.0-16.0) g/dL Hct (37-47) % MCV (80-100) fL MCH (25-34) pg MCHC (32-36) g/dL RDW Std Deviation (36.4-46.3) fL RDW Coeff of Michelle (11.5-14.5) % Plt Count (130-400) K/uL MPV (7.4-10.4) fL Immature Gran % (Auto) % Neut % (Auto) % Lymph % (Auto) % [place] % (Auto) % Eos % (Auto) % Baso % (Auto) % Neut # (Auto) (1.4-6.5) K/uL Lymph # (Auto) (1.2-3.4) K/uL [place] # (Auto) (0.11-0.59) K/uL Eos # (Auto) (0-0.5) K/uL Baso # (Auto) (0-0.2) K/uL Immature Gran # (Auto) (0.00-0.02) K/uL PT (9.0-12.0) Seconds INR (0.9-1.1) Sodium (136-145) mmol/L Potassium (3.5-5.1) mmol/L Chloride (98-107) mmol/L Carbon Dioxide (21-32) mmol/L Anion Gap (3-11) BUN (6-23) mg/dl Creatinine (0.6-1.2) mg/dl Est Cr Clr Drug Dosing ml/min Est GFR ( Amer) ml/min Est GFR (Non-Af Amer) ml/min BUN/Creatinine Ratio (10-20) Glucose (70-99(Fasting)) mg/dl Lactate (0.4-2.0) mmol/L Calcium (8.5-10.1) mg/dl Phosphorus (2.5-4.9) mg/dl Magnesium (1.7-2.4) mg/dl Total Bilirubin (0.2-1.0) mg/dl AST (13-39) U/L ALT (7-52) U/L Alkaline Phosphatase (34-104) U/L Troponin I (0-0.04) ng/ml B-Natriuretic Peptide (0-100) pg/ml Total Protein (6.0-8.3) gm/dl Albumin (3.4-5.0) gm/dl Globulin (2.5-4.0) gm/dl Albumin/Globulin Ratio (0.9-2) Lipase (11-82) U/L Procalcitonin (0-0.5) ng/ml SARS-CoV-2 (PCR) NEGATIVE (Negative) Influenza Type A (PCR) Negative (Neg) Influenza Type B (PCR) Negative (Neg) RSV (RT-PCR) Negative (Neg) Administered Medications Nitroglycerin/Dextrose (Nitroglycerin/D5w 100 Mcg/Ml) 250 mls @ 3 mls/hr IV .Q24H ARYAN; Protocol Stop: 04/08/21 11:14 Last Admin: 03/09/21 12:10 Dose: 5 mcg/min, 3 mls/hr Documented by: [id number] Cosigned by: [id number] Heparin Sodium/Dextrose (Heparin Sodium/Dextrose) 25,000 units in 500 mls @ 18 mls/hr IV .Q24H ARYAN; Protocol Stop: 04/08/21 11:14 Last Admin: 03/09/21 12:12 Dose: Not Given Documented by: [id number] Discontinued Medications Aspirin (Aspirin Chew 324 Mg) 324 mg PO NOW STA Stop: 03/09/21 09:14 Last Admin: 03/09/21 09:24 Dose: 324 mg Documented by: [id number] Furosemide (Furosemide Inj 20 Mg/2 Ml Vial) 20 mg IV ONE ONE Stop: 03/09/21 10:34 Last Admin: 03/09/21 11:25 Dose: Not Given Documented by: [id number] Furosemide (Furosemide 40 Mg/4 Ml Vial) Confirm Administered Dose 40 mg IV .STK- MED ONE Stop: 03/09/21 10:36 Last Admin: 03/09/21 10:39 Dose: 40 mg Documented by: [id number] Heparin Sodium (Porcine) (Heparin Sod (Porcine) 1000 Unit/Ml) Confirm Administered Dose 1,000 units .ROUTE .ST-MED ONE Stop: 03/09/21 10:21 Last Admin: 03/09/21 11:25 Dose: Not Given Documented by: [id number] Heparin Sodium (Porcine) (Heparin Sod (Porcine) 1000 Unit/Ml) 5,000 units IV NOW ONE Stop: 03/09/21 10:32 Last Admin: 03/09/21 10:43 Dose: 5,000 units Documented by: [id number] Cosigned by: [id number] Heparin Sodium/Dextrose (Heparin 69326 Unit/500 Ml D5w) Confirm Administered Dose 25,000 units IV .ST-MED ONE Stop: 03/09/21 11:40 Last Admin: 03/09/21 11:52 Dose: 900 units Documented by: [id number] Cosigned by: [id number] Heparin Sodium/Dextrose (Heparin 39995 Unit/500 Ml D5w) Confirm Administered Dose 25,000 units IV .[facility]-MED ONE Stop: 03/09/21 11:41 Last Admin: 03/09/21 11:51 Dose: Not Given Documented by: [id number] Sodium Chloride (Nss) 500 mls @ 999 mls/hr IV .Q31M ONE Stop: 03/09/21 08:45 Last Infusion: 03/09/21 11:17 Dose: 0 mls/hr Documented by: [id number] Admin: 03/09/21 09:16 Dose: 999 mls/hr Documented by: [id number] Ceftriaxone Sodium (Rocephin) 2,000 mg in 70 mls @ 140 mls/hr IV NOW STA Stop: 03/09/21 11:02 Last Admin: 03/09/21 12:13 Dose: Not Given Documented by: [id number] Ioversol (Optiray 320 125ml) 120 ml IV ONCE ONE Stop: 03/09/21 09:44 Last Admin: 03/09/21 09:43 Dose: 120 ml Documented by: [id number] Nitroglycerin (Nitroglycerin Sl 0.4 Mg/Tab Tab) Confirm Administered Dose 0.4 mg .ROUTE .[facility]-MED ONE Stop: 03/09/21 10:14 Last Admin: 03/09/21 10:13 Dose: 0.4 mg Documented by: [id number] Nitroglycerin (Nitroglycerin 2% Ointment 30gm Tube) Confirm Administered Dose 18 inch .ROUTE .STK-MED ONE Stop: 03/09/21 10:17 Last Admin: 03/09/21 10:39 Dose: 1 inch Documented by: [id number] Ticagrelor (Ticagrelor 90 Mg Tab) 180 mg PO ONE ONE Stop: 03/09/21 10:32 Last Admin: 03/09/21 11:25 Dose: Not Given Documented by: [id number] Ticagrelor (Ticagrelor 90 Mg Tab) Confirm Administered Dose 90 mg PO .STK-MED ONE Stop: 03/09/21 10:36 Last Admin: 03/09/21 10:41 Dose: 90 mg Documented by: [id number] Imaging Data Radiologist's Impression: Chest X-Ray 03/09/21 08:11 XR chest 1V portable CLINICAL HISTORY: Chest Pain. Weakness for 5 days COMPARISON STUDY: 01/02/2019 TECHNIQUE: 1 view of the chest FINDINGS: Single frontal view of the chest demonstrates the cardiomediastinal silhouette to be within normal limits. The lungs are clear of alveolar opacities. There is no evidence for pleural effusion. There is no evidence for vascular congestion. There is no acute osseous pathology. IMPRESSION: No acute cardiopulmonary disease. ACT 112: Negative or not required by law. Electronically signed by: Calvin House M.D. 03/09/2021 8:36 AM Chest CTA 03/09/21 08:50 CT ANGIOGRAPHY OF THE CHEST, PULMONARY EMBOLUS PROTOCOL CLINICAL HISTORY: Chest pain, shortness of breath, recent back surgery, r/o PE COMPARISON STUDY: Chest radiograph performed earlier today. Chest radiograph January 02, 2019. TECHNIQUE: Following IV administration of 120 mL of Optiray, helical axial images of the chest were obtained utilizing the pulmonary embolus protocol. Maximal intensity projections and sagittal and coronal reformats were viewed on an independent 3D workstation. IV contrast was administered without complication. Automated exposure control was utilized for the study. A dose lowering technique was utilized adhering to the principles of ALARA. CT DOSE: 884.41 mGy.cm FINDINGS: No pulmonary emboli are identified. Moderate cardiomegaly is noted. There is no pericardial effusion. Prominent right hilar lymph nodes are noted. Note is made of alveolar opacities within the right lower lobe. There are also mild groundglass opacities within the right upper and right middle lobes as well as the left lung. There is no pneumothorax or pleural effusion. Central airways are patent. No acute fracture or suspicious lesion is identified within visualized portions of the bony thorax. A 2.1 cm caudate lobe lesion was shown on prior studies. This is likely benign. IMPRESSION: 1. No pulmonary emboli identified. 2. Alveolar opacities within the right lower lobe and mild groundglass opacities within the remainder of the lungs. The findings represent an infectious process. 3. Prominent right hilar lymph nodes which are likely reactive. 4. Moderate cardiomegaly. ACT 112: Negative or not required by law. Electronically signed by: Jef Sanchez M.D. 03/09/2021 10:06 AM Discharge Plan Visit Data Chief Complaint: Chest Pain Stated Complaint: chest pain & burning, upper back pain, sob ED Provider: Westley Aguirre Discharge Problem: Non-ST elevation (NSTEMI) myocardial infarction, Hypertension, Acute respiratory failure with hypoxia, Flash pulmonary edema, Exertional chest pain, Elevated troponin Discharge Instructions Interventions: ED Discharge Assessment Last Done: 03/09/21 14:30 Discharge Problem: Hypertension Qualifiers: Hypertension type: unspecified Qualified Code(s): I10 - Essential (primary) hypertension
[2021-03-09] MEDS ORDERED: HEPARIN 25000 UNIT/500 ML D5W IV ONE ×2 (11:39→11:40)
[2021-03-09 11:52] LABS: INR 1.1 (0.9-1.1); Prothrombin Time 11.2 Seconds (9.0-12.0)
--- NOTE | 2021-03-09 12:22 | Critical Care Consultation ---
Date of Consultation March 09, 2021 Assessment & Plan (1) Acute respiratory failure with hypoxia: (2) Sinus tachycardia: (3) Hypertension: (4) Acute HF (heart failure): (5) Non-ST elevation (NSTEMI) myocardial infarction: (6) Elevated hemoglobin A1c: (7) Morbid obesity: (8) Hyperlipidemia: Reason Critically Ill: 60-year-old female with PMH of hypertension, hyperlipidemia, obesity, gout who presented to [facility] with chest pain and was admitted for NSTEMI. Critically ill due to respiratory status and unstable angina requiring heparin and nitro drips. Neuro CAM ICU: NEGATIVE No current neuro concerns Cardiac Unstable angina - Troponin elevated to 7.26, EKG without ST changes - Given ASA 324mg x1, Brillinta 180mg x1, Heparin bolus in ED - Trend troponin until downtrend - Cardiology following -- rec holding off on cath until respiratory status improved; urgent cath if CP recurs - Continue with ASA 81mg daily, Ticagrelor 90mg BID, Nitro drip, and heparin drip Acute heart failure - BNP 766 - No prior history of heart failure - Echo pending - Lasix 20mg IV x1 in ED -- continue on Lasix 40mg IV daily - Continue lisinopril 40mg daily, metoprolol succinate 100mg daily Respiratory Acute hypoxic respiratory failure: Respiratory status worsened when laying flat for CTA. Likely in the setting of acute heart failure . Required BiPAP transiently but now saturating adequately on 3L oxymask. CTA was negative for PE but indicative of possible PNA. Received CTX 2g IV in ED. Continuing on this. MRSA nares pending GI NPO for now in case cath is possible Mildly elevated liver enzymes, T.bili -- Alk phos and lipase normal Renal/Electrolytes Continue home potassium citrate 10mEq BID Holding home calcium carbonate as she was mildly hypercalcemic Replace lytes as needed. No concerns at this time. Endo ICU hyperglycemia protocol Previous Hgb A1c at 6.0 -- high risk for diabetes Repeat A1c in AM Heme Stable H&H. Will monitor for any drops in the setting of Heparin gtt ID Pneumonia - Treatment with ceftriaxone daily x7d - BCx pending - Monitor fever curve and WBC Lines/IV Access - PIVs intact. DVT Prophylaxis Heparin gtt. Thank you for allowing us to be part of this patient's care. Please refer to Dr. Rucker's documentation for any further recommendations. Supervising Physician Co-Signing Physician Notes Dr. Quintana was resident physician during care of patient. I separately evaluated patient for guo portions of the history and the exam. I was present during the critical portion of medical decision making, and I discussed the case with the resident. I generally agree with the findings and plan. Discussed with the hospitalist team even though the patient is status post PCI she has been hemodynamically stable and we are under resource limitations secondary to the COVID-19 pandemic patient is stable for downgrade to telemetry status. History of Present Illness History of Present Illness Coby Zavala is a 60-year-old female with PMH of hypertension, hyperlipidemia, obesity, gout who presented to [facility] due to chest pain. Today has substernal chest pain that was 10/10 in intensity. She had intermittent episodes of varying intensity throughout the last week, which would last 10-15 minutes at a time. She also reported shortness of breath with exertion and laying flat. In the ED received 500mL NSS bolus and was sent fpr CTA, which did not show PE but did show Alveolar opacities within the right lower lobe and mild groundglass opacities within the remainder of the lungs consistent with an infectious process. When laying flat for the CTA she became acutely short of breath and required BiPAP. She was given ASA 324mg x1, Brillinta 180mg x1, Lasix 20mg IV x1, and ceftriaxone 2000mg IV x1. She was given heparin bolus and started on heparin gtt by admitting team. Additionally started on nitro drip. Cardiology aware and recommend holding off on cardiac cath while her respiratory status improves, as she is pain free after nitro. Troponin elevated to 7.26, EKG showing sinus tachycardia and incomplete RBBB but no ST changes. BNP elevated to 766. ICU team consulted due to respiratory distress and unstable angina. Patient currently reports mild SOB, but feels it is improving. Denies further CP , palp, f/c, n/c, abd pain, swelling, numbness, weakness. Allergies Allergy/AdvReac Type Severity Reaction Status Date / Time amoxicillin Allergy Intermediate Rash Verified 03/09/21 11:16 ampicillin Allergy Intermediate Rash Verified 03/09/21 11:16 Penicillins Allergy Intermediate Rash Verified 03/09/21 11:16 Home Medications Medication Instructions Recorded Confirmed Type multivitamin 1 tab PO QAM 03/10/20 03/09/21 History cholecalciferol (vitamin D3) 50 50 mcg PO DAILY 05/30/20 03/09/21 History mcg (2,000 unit) capsule atorvastatin 20 mg tablet 20 mg PO QPM #90 tab 09/13/20 03/09/21 Rx lisinopril 40 mg tablet 40 mg PO DAILY #90 tab 12/07/20 03/09/21 Rx metoprolol succinate 100 mg 100 mg PO DAILY #30 tab 12/15/20 03/09/21 Rx tablet,extended release 24 hr potassium citrate 10 mEq (1,080 10 meq PO BID #180 tab 02/13/21 03/09/21 Rx mg) tablet,extended release calcium carbonate 600 mg calcium 600 mg PO BID 03/09/21 03/09/21 History (1,500 mg) tablet (Calcium) gabapentin 300 mg capsule 300 mg PO QAM 03/09/21 03/09/21 History Patient History Medical History Degenerative disc disease, lumbar Diverticular disease HX Elevated hemoglobin A1c Gout Hyperlipidemia Hypertension Kidney stones Lesion of liver just monitoring Lumbar disc herniation Menopause Personal history of gout Polyarthritis Skin candidiasis Ureteral calculi Surgical History BCC (basal cell carcinoma of skin) with countless MOHS procedure H/O lithotripsy shock wave lithotripsy x5 History of dilatation and curettage History of repair of rotator cuff right History of tooth extraction S/P ankle joint replacement 03/18/19 Dr. Reno Nance at [facility], left S/P foot surgery, right plantar fascitis S/P left knee surgery Family History Father BCC (basal cell carcinoma of skin) Mother Bronchiectasis Brother Hypertension Grandmother (Maternal) Diabetes Other No family history of adverse response to anesthesia Denies family history of Ovarian cancer Prostate cancer Myocardial infarction Breast cancer Colorectal cancer Social History Smoking Status: Never smoker Second Hand Exposure: No; Do You Dip or Chew Tobacco: No; Tobacco Cessation Education Requested by Patient: No Hx Alcohol Use: No Hx Substance Use: No Preferred Language: [place]an Communication Ability: Effective Visual Impairment: Limited Hearing Ability: Normal Battery Service Technician Required: No Beliefs That Will Affect Care: None marital status: Single Current Living Situation: Alone current occupational status: retired Other Information That Helps Us Care for You: No Feels Safe at Home: Yes Safety Concerns: Feels Safe At This Time Dental Care, Regularly: Yes Seatbelt Use: always Assistive Devices: Glasses Review of Systems Review of Systems: per HPI Physical Exam Physical Exam: GENERAL: A&Ox3. NAD. HEENT: PERRL, EOMI. Moist mucous membranes. NECK: No JVD. No lymphadenopathy. CHEST/LUNGS: Breathing comfortably on oxymask. Bilateral mild crackles. No wheezes, rales, rhonchi. HEART: Tachycardic, regular rhythm. No m/g/r. ABDOMEN: NT/ND, soft. BS+ x4 EXTREMITIES: No cyanosis, no clubbing, no edema SKIN: Warm and dry. No rashes or lesions. PSYCHIATRIC: Euthymic affect, no SI, no pressured speech, no hallucinations NEUROLOGIC: No FND. Results & Data Results & Data ([facility]) Vital Signs (Past 12 Hours) Vital Signs Temp Pulse Pulse Resp BP BP Pulse Ox 03/09/21 11:15 115 H 27 H 98 03/09/21 11:00 116 H 30 H 163/111 H 98 03/09/21 10:55 122 H 28 H 165/110 H 98 03/09/21 10:50 125 H 31 H 178/117 H 98 03/09/21 10:45 124 H 40 H 188/118 H 97 03/09/21 10:40 120 H 34 H 181/115 H 03/09/21 10:35 124 H 32 H 161/114 H 99 03/09/21 10:30 121 H 34 H 157/98 H 99 03/09/21 10:25 113 H 29 H 152/96 H 99 03/09/21 10:20 102 H 35 H 169/113 H 99 03/09/21 10:19 105 H 34 H 99 03/09/21 10:00 90 27 H 158/109 H 90 03/09/21 09:54 98 H 89 19 128/93 96 03/09/21 09:30 91 H 23 94 03/09/21 09:00 87 19 128/93 95 03/09/21 08:31 93 H 23 135/104 H 95 03/09/21 08:30 88 20 95 03/09/21 08:20 97 H 21 94 03/09/21 08:06 36.9 C 94 H 20 158/98 H 95 Critical Care Results & Data Vital Signs (Past 12 Hours) Vital Signs Temp Pulse Pulse Resp BP BP Pulse Ox 03/09/21 11:15 115 H 27 H 98 03/09/21 11:00 116 H 30 H 163/111 H 98 03/09/21 10:55 122 H 28 H 165/110 H 98 03/09/21 10:50 125 H 31 H 178/117 H 98 03/09/21 10:45 124 H 40 H 188/118 H 97 03/09/21 10:40 120 H 34 H 181/115 H 03/09/21 10:35 124 H 32 H 161/114 H 99 03/09/21 10:30 121 H 34 H 157/98 H 99 03/09/21 10:25 113 H 29 H 152/96 H 99 03/09/21 10:20 102 H 35 H 169/113 H 99 03/09/21 10:19 105 H 34 H 99 03/09/21 10:00 90 27 H 158/109 H 90 03/09/21 09:54 98 H 89 19 128/93 96 03/09/21 09:30 91 H 23 94 03/09/21 09:00 87 19 128/93 95 03/09/21 08:31 93 H 23 135/104 H 95 03/09/21 08:30 88 20 95 03/09/21 08:20 97 H 21 94 03/09/21 08:06 36.9 C 94 H 20 158/98 H 95 Lab & Micro Results (Past 24 Hours) RBC 4.75 M/uL (4.2-5.4) 03/10/21 WBC 12.70 K/uL (4.8-10.8) H 03/10/21 Hgb 14.6 g/dL (12.0-16.0) 03/10/21 Hct 45.6 % (37-47) 03/10/21 MCV 96.0 fL (80-100) 03/10/21 MCH 30.7 pg (25-34) 03/10/21 MCHC 32.0 g/dL (32-36) 03/10/21 RDW Standard Deviation 56.0 fL (36.4-46.3) H 03/10/21 RDW Coefficient of Variation 16.2 % (11.5-14.5) H 03/10/21 Plt Count 216 K/uL (130-400) 03/10/21 MPV 10.5 fL (7.4-10.4) H 03/10/21 Neutrophils (%) (Auto) 80.4 % 03/10/21 Lymphocytes (%) (Auto) 12.0 % 03/10/21 Monocytes # (Auto) 0.82 K/uL (0.11-0.59) H 03/10/21 Eosinophils # (Auto) 0.06 K/uL (0-0.5) 03/10/21 Immature Granulocyte % (Auto) 0.4 % 03/10/21 Neutrophils # (Auto) 10.22 K/uL (1.4-6.5) H 03/10/21 Lymphocytes # (Auto) 1.53 K/uL (1.2-3.4) 03/10/21 Monocytes # (Auto) 0.82 K/uL (0.11-0.59) H 03/10/21 Eosinophils # (Auto) 0.06 K/uL (0-0.5) 03/10/21 Basophils # (Auto) 0.02 K/uL (0-0.2) 03/10/21 Immature Granulocyte # (Auto) 0.05 K/uL (0.00-0.02) H 03/10/21 Na 140 mmol/L (136-145) 03/10/21 K 3.4 mmol/L (3.5-5.1) L 03/10/21 Cl 106 mmol/L (98-107) 03/10/21 CO2 27 mmol/L (21-32) 03/10/21 Anion Gap 7 (3-11) 03/10/21 BUN 22 mg/dl (6-23) 03/10/21 Creatinine 1.16 mg/dl (0.6-1.2) 03/10/21 Estimated GFR ( Amer) 60.1 ml/min 03/10/21 Estimated GFR (Non-Af Amer) 51.9 ml/min 03/10/21 BUN/Creatinine Ratio 19.0 (10-20) 03/10/21 Glu 127 mg/dl (70-99(Fasting)) H 03/10/21 Ca 9.0 mg/dl (8.5-10.1) 03/10/21 Phosphorus Level 3.3 mg/dl (2.5-4.9) 03/09/21 Total Bilirubin 1.3 mg/dl (0.2-1.0) H 03/09/21 AST 63 U/L (13-39) H 03/09/21 ALT 54 U/L (7-52) H 03/09/21 Alkaline Phosphatase 71 U/L (34-104) 03/09/21 TP 7.5 gm/dl (6.0-8.3) 03/09/21 Albumin 4.5 gm/dl (3.4-5.0) 03/09/21 Globulin 3.0 gm/dl (2.5-4.0) 03/09/21 Albumin/Globulin Ratio 1.5 (0.9-2) 03/09/21 Mg 2.1 mg/dl (1.7-2.4) 03/09/21 08:30 03/09/21 Calcium Level 9.0 mg/dl (8.5-10.1) 03/10/21 05:16 03/10/21 Prothromb Time International Ratio 1.1 (0.9-1.1) 03/09/21 10:38 03/09/21 Diagnostic Findings (Past 24 Hours) Chest X-Ray 03/09/21 08:11 XR chest 1V portable CLINICAL HISTORY: Chest Pain. Weakness for 5 days COMPARISON STUDY: 01/02/2019 TECHNIQUE: 1 view of the chest FINDINGS: Single frontal view of the chest demonstrates the cardiomediastinal silhouette to be within normal limits. The lungs are clear of alveolar opacities. There is no evidence for pleural effusion. There is no evidence for vascular congestion. There is no acute osseous pathology. IMPRESSION: No acute cardiopulmonary disease. ACT 112: Negative or not required by law. Electronically signed by: Calvin House M.D. 03/09/2021 8:36 AM Chest CTA 03/09/21 08:50 CT ANGIOGRAPHY OF THE CHEST, PULMONARY EMBOLUS PROTOCOL CLINICAL HISTORY: Chest pain, shortness of breath, recent back surgery, r/o PE COMPARISON STUDY: Chest radiograph performed earlier today. Chest radiograph January 02, 2019. TECHNIQUE: Following IV administration of 120 mL of Optiray, helical axial images of the chest were obtained utilizing the pulmonary embolus protocol. Maximal intensity projections and sagittal and coronal reformats were viewed on an independent 3D workstation. IV contrast was administered without complication. Automated exposure control was utilized for the study. A dose lowering technique was utilized adhering to the principles of ALARA. CT DOSE: 884.41 mGy.cm FINDINGS: No pulmonary emboli are identified. Moderate cardiomegaly is noted. There is no pericardial effusion. Prominent right hilar lymph nodes are noted. Note is made of alveolar opacities within the right lower lobe. There are also mild groundglass opacities within the right upper and right middle lobes as well as the left lung. There is no pneumothorax or pleural effusion. Central airways are patent. No acute fracture or suspicious lesion is identified within visu alized portions of the bony thorax. A 2.1 cm caudate lobe lesion was shown on prior studies. This is likely benign. IMPRESSION: 1. No pulmonary emboli identified. 2. Alveolar opacities within the right lower lobe and mild groundglass opacities within the remainder of the lungs. The findings represent an infectious process. 3. Prominent right hilar lymph nodes which are likely reactive. 4. Moderate cardiomegaly. ACT 112: Negative or not required by law. Electronically signed by: Jef Sanchez M.D. 03/09/2021 10:06 AM I & O Totals 24 Hours 03/08/21 03/09/21 03/10/21 06:59 06:59 06:59 Intake Total 500 / 500 Balance 500 / 500 Cumulative 03/09/21 07:59 thru 03/09/21 11:17 Intake Total 500 Balance 500 RT Ventilator Mngmt (Last Documented) Ventilator Ordered Settings Respiratory Rate 27 03/09/21 11:15 Fraction of Inspired Oxygen 90 03/09/21 11:15 Ventilator - PT Measurements Respiratory Rate 27 Resident Activity Tracking Resident Involvement: Resident Care Provided Care Provided: Adult [facility]
[2021-03-09 13:41] LABS: Influenza A virus by PCR Negative (Neg); Influenza B virus by PCR Negative (Neg); RSV by PCR Negative (Neg); SARS CoV2 RNA(COVID-19) InHosp NEGATIVE (Negative)
[2021-03-09] MEDS ORDERED: LIDOCAINE 1% LOCAL 20 ML VIAL ONE (14:29)
[2021-03-09] MEDS ORDERED: MIDAZOLAM HCL 1 MG/ML 2ML VIAL ONE ×2 (14:33→17:21)
[2021-03-09] MEDS ORDERED: niCARdipine HCL INJ 2.5 MG/ML 10 ML AMP ONE (14:33)
[2021-03-09] MEDS ORDERED: HEPARIN (PORCINE) 1000 UNIT/ML 10 ML (CATH LAB USE ONLY) ONE (14:33)
[2021-03-09] MEDS ORDERED: NITROGLYCERIN/D5W 100MCG/ML 20ML SYR ONE (14:34)
[2021-03-09] MEDS ORDERED: fentaNYL citrate 100 MCG/2 ML VIAL ONE (14:34)
--- NOTE | 2021-03-09 15:00 | Pre Anesthesia Assessment ---
Date of Service March 09, 2021 Pre Sedation Assessment Vital Signs Temp Pulse Pulse Resp BP BP Pulse Ox 03/09/21 14:39 68 20 166/98 H 98 03/09/21 14:15 98 H 23 131/77 93 03/09/21 14:00 93 H 19 110/72 03/09/21 13:45 91 H 23 121/76 91 03/09/21 13:30 94 H 19 118/75 93 03/09/21 13:15 97 H 25 H 114/84 88 L 03/09/21 13:00 158 H 20 132/82 94 03/09/21 12:45 96 H 21 132/93 03/09/21 12:30 99 H 22 134/93 98 03/09/21 12:25 99 H 19 99 03/09/21 12:20 101 H 19 98 03/09/21 12:15 100 H 23 134/91 97 03/09/21 12:10 103 H 23 98 03/09/21 12:05 102 H 28 H 98 03/09/21 12:00 99 H 17 135/91 03/09/21 11:55 101 H 25 H 139/94 98 03/09/21 11:50 103 H 23 140/91 97 03/09/21 11:45 102 H 22 134/91 98 03/09/21 11:40 102 H 21 145/95 H 98 03/09/21 11:35 108 H 28 H 154/94 H 98 03/09/21 11:30 109 H 29 H 156/105 H 98 03/09/21 11:25 111 H 33 H 138/105 H 98 03/09/21 11:20 108 H 23 151/100 H 98 03/09/21 11:15 112 H 34 H 165/98 H 98 03/09/21 11:10 109 H 28 H 149/105 H 98 03/09/21 11:05 115 H 26 H 162/106 H 98 03/09/21 11:00 116 H 30 H 163/111 H 98 03/09/21 10:55 122 H 28 H 165/110 H 98 03/09/21 10:50 125 H 31 H 178/117 H 98 03/09/21 10:45 124 H 40 H 188/118 H 97 03/09/21 10:40 120 H 34 H 181/115 H 03/09/21 10:35 124 H 32 H 161/114 H 99 03/09/21 10:30 121 H 34 H 157/98 H 99 03/09/21 10:25 113 H 29 H 152/96 H 99 03/09/21 10:20 102 H 35 H 169/113 H 99 03/09/21 10:19 105 H 34 H 99 03/09/21 10:00 90 27 H 158/109 H 90 03/09/21 09:54 98 H 89 19 128/93 96 03/09/21 09:30 91 H 23 94 03/09/21 09:00 87 19 128/93 95 03/09/21 08:31 93 H 23 135/104 H 95 03/09/21 08:30 88 20 95 03/09/21 08:20 97 H 21 94 03/09/21 08:06 36.9 C 94 H 20 158/98 H 95 Cardiovascular RRR, no murmur, no edema Respiratory + respiratory effort normal + crackles Pre-Sedation Airway Assessment Smoking Status: Never smoker Hx Sleep Apnea: Yes Short, Thick Neck: Yes Thyromental Distance: > or= 3.5 Finger Breadths Oral Cavity: + WNL Mallampati Class: III ASA: ASA3 NPO Status Date of Last Intake of Fluids: 03/08/21 Time of Last Intake of Fluids: 17:00 Date of Last Intake of Solid Food: 03/08/21 Time of Last Intake of Solid Foods: 17:00 Procedure Planning Contraindications for Sedation: none Current Medications Reviewed: Yes Notes The planned sedation has been discussed with the patient. Informed Consent was obtained. I have identified the patient, determined the appropriateness of colt tion and have assessed the patient immediately prior to the procedure. All medicine(s) and interventions are by my order.
--- NOTE | 2021-03-09 16:15 | Cardiac Catheterization ---
[facility] Data: Riprap Worker Cardiac Status Clinical evaluation leading to the procedure CAD Presenation: Non STEMI Anginal Classification: CCS IV Heart Failure: NYHA Class: CCS IV Cardiogenic Shock within 24 Hours: No Cardiac Arrest within 24 Hours: No Imaging Studies Past 6 Months: Yes Stress Studies Past 6 Months: No Coronary Anatomy Dominant: Right Diagnostic Physicians Name: Daniel Regalado MD Status: Elective Closure Device Percutaneous Entry Location: Radial Closure Device: Radial Band Recommendations: PCI without planned CABG Cardiac Cath Procedure Full Procedure Date March 09, 2021 Pre-Procedure Diagnosis Pre-Procedure Diagnosis: Non STEMI AUC Score AUC Score: 9 Post-Procedure Diagnosis Post-Procedure Diagnosis: Severe CAD and Elevated Intracardiac Pressures Procedure(s) Performed Procedure(s) Performed: Coronary Angiography and Left Heart Cath Lens Blank Gauger Daniel Regalado MD Pasting Machine Offbearer(s) Showers Estimated Blood Loss Estimated Blood Loss: < 30 ml Medication(s) Medication(s): Fentanyl, Heparin, Lidocaine 1%, Nicardipine and Versed Summary of Findings Procedures: 1. Coronary angiography 2. Left heart catheterization 3. Moderate sedation Indication: 60-year-old female with hypertension and dyslipidemia who presented with NSTEMI and acute CHF decompensation. Echo demonstrated large LAD wall motion abnormality. Angina resolved with nitroglycerin. After initial diuresis and improvement in respiratory status, decision was made to proceed with cardiac catheterization. Coronary angiography: 1. Left main: No significant CAD. 2. Left anterior descending: Proximal LAD luminal irregularities. Mid LAD 98% stenosis. Small D1 and D2 vessels. 3. Circumflex: No significant CAD within the circumflex and large OM1. 4. Right coronary artery: Dominant vessel. Proximal RCA long segment 70% stenosis. Mid RCA 30%. PDA without significant CAD. Left heart catheterization: 1. Left ventriculography was not performed. 2. Moderately elevated LVEDP. LVEDP 24 mmHg. 3. No aortic stenosis. Moderate sedation: 1. Sedation start time: 3:09 PM 2. Sedation end time: 4:00 PM Impression: 1. Severe mid LAD CAD (culprit vessel). 2. Severe proximal RCA CAD. 3. Elevated left-sided filling pressure. 4. No aortic stenosis. Plan: 1. Dr. Chaney of interventional cardiology was asked to review images and consider PCI of mid LAD. He plans on proceeding with PCI attempt. 2. Risk factor modification and aggressive medical therapy for newly diagnosed CAD. Hemodynamics Rest Ao:: 133/81 Final Ao: 140/81 LV: 135/6/24 Recommendations Recommendations: PCI without planned CABG Specimens Specimens: None Radiation Exposure (mGy) 1895 mGy. Fluoro time 14 min. Contrast (mls) 50 ml Procedural Complication(s) None Disposition remains in school laboratory technician for PCI attempt I attest to the content of the Intraoperative Record and any orders documented therein. Any exceptions are noted below. [facility] Card Cath Procedure Codes Cardiac Catheterization Procedure 1: Cardiovascular Cath Procedures: 26062 Coronaries and LHC (+/-LV) Moderate Sedation Procedure 1: Sedation/Anesthesia: 74873 Mod Sedation by the same physician;Init15 Min Child Age 5 & Up Procedure 2: Sedation/Anesthesia: 71790 Mod Sedation by the same physician; Ea [id number] Minutes Procedure 3: Sedation/Anesthesia: 25825 Mod Sedation by the same physician; Ea [id number] Minutes PG Care Time/CCT Total # of Minutes Spent Total Time Spent with Patient: Total time spent is greater than 50% in coordination of care (as documented) at patient's floor/unit and/or counseling patient:
--- NOTE | 2021-03-09 18:07 | Post Anesthesia Assessment ---
Date of Service March 09, 2021 Post Sedation Assessment Vital Signs Temp Pulse Pulse Resp BP BP Pulse Ox 03/09/21 14:39 68 20 166/98 H 98 03/09/21 14:15 98 H 23 131/77 93 03/09/21 14:00 93 H 19 110/72 03/09/21 13:45 91 H 23 121/76 91 03/09/21 13:30 94 H 19 118/75 93 03/09/21 13:15 97 H 25 H 114/84 88 L 03/09/21 13:00 158 H 20 132/82 94 03/09/21 12:45 96 H 21 132/93 03/09/21 12:30 99 H 22 134/93 98 03/09/21 12:25 99 H 19 99 03/09/21 12:20 101 H 19 98 03/09/21 12:15 100 H 23 134/91 97 03/09/21 12:10 103 H 23 98 03/09/21 12:05 102 H 28 H 98 03/09/21 12:00 99 H 17 135/91 03/09/21 11:55 101 H 25 H 139/94 98 03/09/21 11:50 103 H 23 140/91 97 03/09/21 11:45 102 H 22 134/91 98 03/09/21 11:40 102 H 21 145/95 H 98 03/09/21 11:35 108 H 28 H 154/94 H 98 03/09/21 11:30 109 H 29 H 156/105 H 98 03/09/21 11:25 111 H 33 H 138/105 H 98 03/09/21 11:20 108 H 23 151/100 H 98 03/09/21 11:15 112 H 34 H 165/98 H 98 03/09/21 11:10 109 H 28 H 149/105 H 98 03/09/21 11:05 115 H 26 H 162/106 H 98 03/09/21 11:00 116 H 30 H 163/111 H 98 03/09/21 10:55 122 H 28 H 165/110 H 98 03/09/21 10:50 125 H 31 H 178/117 H 98 03/09/21 10:45 124 H 40 H 188/118 H 97 03/09/21 10:40 120 H 34 H 181/115 H 03/09/21 10:35 124 H 32 H 161/114 H 99 03/09/21 10:30 121 H 34 H 157/98 H 99 03/09/21 10:25 113 H 29 H 152/96 H 99 03/09/21 10:20 102 H 35 H 169/113 H 99 03/09/21 10:19 105 H 34 H 99 03/09/21 10:00 90 27 H 158/109 H 90 03/09/21 09:54 98 H 89 19 128/93 96 03/09/21 09:30 91 H 23 94 03/09/21 09:00 87 19 128/93 95 03/09/21 08:31 93 H 23 135/104 H 95 03/09/21 08:30 88 20 95 03/09/21 08:20 97 H 21 94 03/09/21 08:06 98.4 F 94 H 20 158/98 H 95 Recovery Score Activity: Moves 4 extremities Respiration: Deep Breath/Cough Circulation: +/-20% PreAnes Value Consciousness: Fully Awake Oxygen Saturation: O2 needed for >90% Discharge Sedation Level of Care: Fast Track Phase II Post Sedation Plan On clinical assessment, the patient appears to have tolerated the sedation without complications. Patient is recovering as anticipated. Patient will continue to be monitored by nursing and may be discharged when sedation discharge criteria are met per below protocol. Upon Completions of procedure up to 15 minutes continue every 5 minute vital signs and the P.A.R. score; then discharge to a Phase I or Fast Track to Phase II per the following guidelines: * Discharge Patient to appropriate Phase II area if PAR is 8 or greater or return to pre- procedure baseline. The post - procedure orders will be as directed. * If PAR score is less than 8 or not return to pre-procedure baseline then patient will follow Phase I monitoring till PAR is reached for Phase II. The Phase I may be done in procedure room or may call to secure a Phase I area. * If naloxone or flumazenil are used for reversal, hold in Phase I for continued monitoring from when last reversal dose was given for a minimum of 60 minutes or longer pending the nurse and/or physician discretion of patient condition before discharge to Phase II. Please call the Sedation Physician to re-evaluate and complete post-note for discharge to Phase II area. Do NOT discharge from procedure sedation or Phase 1 until post- sedation evaluation note is complete by procedure /sedation MD Sedation Discharge Instructions to be given to the patient at discharge to home.
--- NOTE | 2021-03-09 18:17 | Cardiac Catheterization ---
[facility] Data: Ruby On Rails Consultant Cardiac Status Clinical evaluation leading to the procedure CAD Presenation: Non STEMI Anginal Classification: CCS IV Heart Failure: NYHA Class: CCS IV Cardiogenic Shock within 24 Hours: No Cardiac Arrest within 24 Hours: No Imaging Studies Past 6 Months: Yes Stress Studies Past 6 Months: No Diagnostic Physicians Name: Miguelangel Chaney MD Status: Urgent Closure Device Percutaneous Entry Location: Radial Closure Device: Radial Band Recommendations: PCI without planned CABG Lesion Segment Name: Mid LAD Culprit Artery: Yes Stenosis Prior to Rx (%): 98 Chronic Total Occlusion: No IVUS: No FFR: No Pre-Procedure BRIAN Flow: 2 Previously Treated Lesion: No Lesion Complexity: Non-High/Non-C Lesion Length (mm): 15 Thrombus Present: Yes Bifurcation Lesion: No Guidewire Across Lesion: Stenosis Post-Procedure (%): 0 Post-Procedure BRIAN Flow: 3 Devices(s) Deployed: Yes Yes Lesion #2 Segment Name: Proximal to mid RCA Culprit Artery: No Stenosis Prior to Rx (%): 70 Chronic Total Occlusion: No IVUS: No FFR: No Pre-Procedure BRIAN Flow: 3 Previously Treated Lesion: No Lesion Complexity: Non-High/Non-C Lesion Length (mm): 25 Thrombus Present: No Bifurcation Lesion: No Guidewire Across Lesion: Yes Stenosis Post-Procedure (%): 0 Post-Procedure BRIAN Flow: 3 Devices(s) Deployed: Yes Intraprocedure Events Significant Disection: No Perforation: No Cardiac Cath Procedure Full Procedure Date March 09, 2021 Pre-Procedure Diagnosis Pre-Procedure Diagnosis: Non STEMI AUC Score AUC Score: 8 Post-Procedure Diagnosis Post-Procedure Diagnosis: Severe CAD and Successful PCI Procedure(s) Performed Procedure(s) Performed: Coronary Angiography and Drug Eluting Stent Cushion Worker Miguelangel Chaney MD Offset Plate Maker(s) Showers Estimated Blood Loss Estimated Blood Loss: < 30 ml Medication(s) Medication(s): Fentanyl, Heparin, Lidocaine 1%, Nicardipine, Nitroglycerin and Versed Medication(s): Ticagrelor Summary of Findings Indication: High risk NSTEMI Access: 6 Fr right radial artery Catheters: JL 3.5 guide, JR4 guide Findings: For full details of patient's coronary angiography please see cath report dictated by Dr. Regalado. Briefly, patient found to have multivessel disease with a acute 98% mid LAD stenosis and a diffuse 70% proximal to mid RCA stenosis. Decision to proceed with PCI. -- PCI of LAD-- Antithrombotic therapy: Heparin, ticagrelor Procedure: Left main cannulated with JL 3.5 guide Leather Repairer 50 wire passed across lesion into distal vessel Mid LAD lesion predilated with 2.0 compliant balloon Dilated lesion stented with 3.5 x 18 mm Xience drug-eluting stent Stent post-dilated with 4.0 noncompliant balloon IC vasodilators administered for spasm Post procedure BRIAN 3 flow, stent well expanded with minimal residual stenosis and no apparent cardiac complications. PCI of RCA RCA cannulated with JR4 guide Proximal to mid RCA lesion crossed with highway patrol pilot 50 wire Unable to pass 2.0, 2.5 balloons despite assistance of telescope support catheter Repeat angiography revealed new occlusion of proximal RCA. No ECG changes, no new symptoms. Stenosis/occlusion rewired with new highway patrol pilot 50 wire Distal intraluminal wire position confirmed via injection through OTW balloon in distal RCA Proximal to mid RCA dilated with 2.0 and 2.5 balloons Proximal to mid RCA stented with 2.75 x 33 mm Xience drug-eluting stent Stent postdilated with 3.5 NC IC vasodilators administered for spasm Post procedure BRIAN 3 flow, stent well expanded with minimal residual stenosis and no apparent cardiac complications. Arterial Closure: TR band Summary: 1. Successful PCI of mid LAD with single drug-eluting stent (3.5 x 18 mm Xience; postdilated with 4.0 NC). 2. Successful PCI of proximal to mid RCA with single drug-eluting stent (2.75 x 33 mm Xience; postdilated with 3.5 NC). Recommendations: To PCU for continued monitoring Loaded with ticagrelor 180 mg Continue dual-antiplatelet therapy for at least 1 year Continue statin, and ASCVD risk factor modification Consult cardiac Rehab Hemodynamics Rest Ao:: 114/70/89 Final Ao: 110/65/79 LV: -- Recommendations Recommendations: PCI without planned CABG Specimens Specimens: None Radiation Exposure (mGy) 7390 Contrast (mls) 220 VISI Fluids (cc crystalloids) Fluids (cc crystalloids): 330 Drains Drains: None Anesthesia Moderate 1606-5546 Procedural Complication(s) None Disposition PCU I attest to the content of the Intraoperative Record and any orders documented therein. Any exceptions are noted below. [facility] Card Cath Procedure Codes Moderate Sedation Procedure 1: Sedation/Anesthesia: 03695 Mod Sedation by the same physician; Ea [id number] Minutes Stenting Procedure 1: Cardiovascular Stent Procedures: 80760 Perc transcatheter placement of intracoronary stent(s), with ang Procedure 2: Cardiovascular Stent Procedures: 20823 Ea addl branch of a major coronary artery PG Care Time/CCT Total # of Minutes Spent Total Time Spent with Patient: Total time spent is greater than 50% in coordination of care (as documented) at patient's floor/unit and/or counseling patient:
[2021-03-09] MEDS ORDERED: NITROGLYCERIN SL 0.4 MG/TAB TAB SL PRN (18:18)
[2021-03-09] MEDS ORDERED: ACETAMINOPHEN 325 MG TAB PO PRN (18:18)
[2021-03-09] MEDS ORDERED: ICU PROTOCOL FOR HYPERGLYCEMIA PRN (18:29)
--- NOTE | 2021-03-09 19:39 | XCELERA ---
[id number]
[2021-03-09] MEDS: POTASSIUM CITRATE 10 MEQ TAB PO SCH (20:54)
[2021-03-09] MEDS: ATORVASTATIN 40 MG TAB PO SCH (20:54)
[2021-03-09] MEDS: amLODIPine BESYLATE 5 MG TAB PO SCH ×2 (20:54→21:03)
[2021-03-09] MEDS: TICAGRELOR 90 MG TAB PO SCH (20:55)
[2021-03-09] MEDS ORDERED: METOPROLOL TARTRATE 25 MG TAB PO SCH (21:00)
[2021-03-09] MEDS: NITROGLYCERIN 2% OINTMENT 30GM TUBE EXT SCH ×2 (22:30→22:54)
[2021-03-10] MEDS ORDERED: MoRPHine SULFATE 2 MG/ML CARP IV STA (00:12)
[2021-03-10 05:43] LABS: Hematocrit (blood only) 45.6 % (37-47); Hemoglobin 14.6 g/dL (12.0-16.0); Mean Corpuscular Hemoglobin 30.7 pg (25-34); Mean Platelet Volume 10.5 fL (7.4-10.4); Platelet Count 216 K/uL (130-400); RDW Coefficient of Variation 16.2 % (11.5-14.5); Red Blood Count 4.75 M/uL (4.2-5.4)
[2021-03-10 06:14] LABS: Basophils # (auto) 0.02 K/uL (0-0.2); Basophils % (auto) 0.2 %; Eosinophils # (auto) 0.06 K/uL (0-0.5); Eosinophils % (auto) 0.5 %; Immature Granulocytes # (auto) 0.05 K/uL (0.00-0.02); Immature Granulocytes % (auto) 0.4 %; Lymphocytes # (auto) 1.53 K/uL (1.2-3.4); Monocytes # (auto) 0.82 K/uL (0.11-0.59); Monocytes % (auto) 6.5 %; Neutrophils # (auto) 10.22 K/uL (1.4-6.5); Neutrophils % (auto) 80.4 %
[2021-03-10] MEDS: NITROGLYCERIN 2% OINTMENT 30GM TUBE EXT SCH ×2 (06:23→12:15)
[2021-03-10 06:31] LABS: Chol HDL Ratio 4.3 (0-5); Creatinine Clr Calc Pharmacy 57.1 ml/min; Est GFR (African American) 60.1 ml/min; Est GFR (Non-African American) 51.9 ml/min; Potassium 3.4 mmol/L (3.5-5.1); Troponin I 16.45 ng/ml (0-0.04)
--- NOTE | 2021-03-10 06:53 | Billing Data ---
Date of Service March 09, 2021 Coding Level of Care Code 14769 Inpt Consult Level 5
--- NOTE | 2021-03-10 07:08 | Critical Care Progress Note ---
Date of Service March 10, 2021 Assessment & Plan (1) Acute respiratory failure with hypoxia: (2) Sinus tachycardia: (3) Hypertension: (4) Acute HF (heart failure): (5) Non-ST elevation (NSTEMI) myocardial infarction: (6) Elevated hemoglobin A1c: (7) Morbid obesity: (8) Hyperlipidemia: Plan: Reason Critically Ill: 60-year-old female with PMH of hypertension, hyperlipidemia, obesity, gout who presented to [facility] with chest pain and was admitted for NSTEMI. Critically ill due to respiratory status and unstable angina requiring heparin and nitro drips. Neuro CAM ICU: NEGATIVE No current neuro concerns Cardiac Unstable angina/CAD - Troponin elevated to 7.26, EKG without ST changes - Given ASA 324mg x1, Brillinta 180mg x1, Heparin bolus in ED - Trend troponin until downtrend - Cardiology following - Respiratory status improved later 03/09/21, so patient was taken to cath -- now s/p RONNA to LAD and RCA - Continue with ASA 81mg daily, Ticagrelor 90mg BID, atorvastatin 80g daily, lisinopril 40mg daily, metoprolol 100mg daily Acute heart failure - BNP 766 - No prior history of heart failure - Echo pending - Lasix 20mg IV x1 in ED -- continue on Lasix 40mg IV daily - Continue lisinopril 40mg daily, metoprolol succinate 100mg daily Respiratory Acute hypoxic respiratory failure: Respiratory status worsened when laying flat for CTA. Likely in the setting of acute heart failure . Required BiPAP transiently but now saturating adequately on 3L oxymask. CTA was negative for PE but indicative of possible PNA. Received CTX 2g IV in ED. Continuing on this. MRSA nares negative GI NPO for now in case cath is possible Mildly elevated liver enzymes, T.bili -- Alk phos and lipase normal Renal/Electrolytes Continue home potassium citrate 10mEq BID Holding home calcium carbonate as she was mildly hypercalcemic Replace lytes as needed. No concerns at this time. Endo ICU hyperglycemia protocol Previous Hgb A1c at 6.0 -- high risk for diabetes Repeat A1c in AM Heme Stable H&H. Will monitor for any drops in the setting of Heparin gtt ID Pneumonia - Treatment with ceftriaxone daily x7d - BCx pending - Monitor fever curve and WBC Lines/IV Access - PIVs intact. DVT Prophylaxis Heparin gtt. Thank you for allowing us to be part of this patient's care. Please refer to Dr. Rucker's documentation for any further recommendations. Admission and Anticipated Discharge Date Admission Date: March 09, 2021 Review of Systems Review of Systems: per HPI Physical Exam Physical Exam: GENERAL: A&Ox3. NAD. HEENT: PERRL, EOMI. Moist mucous membranes. NECK: No JVD. No lymphadenopathy. CHEST/LUNGS: Breathing comfortably on oxymask. Bilateral mild crackles. No wheezes, rales, rhonchi. HEART: Tachycardic, regular rhythm. No m/g/r. ABDOMEN: NT/ND, soft. BS+ x4 EXTREMITIES: No cyanosis, no clubbing, no edema SKIN: Warm and dry. No rashes or lesions. PSYCHIATRIC: Euthymic affect, no SI, no pressured speech, no hallucinations NEUROLOGIC: No FND. Results & Data Results & Data ([facility]) Vital Signs (Past 12 Hours) Vital Signs Temp Pulse Resp BP Pulse Ox 03/10/21 06:00 89 18 124/84 97 03/10/21 05:00 86 21 125/85 95 03/10/21 04:00 36.7 C 92 H 19 131/90 98 03/10/21 03:00 90 24 116/75 95 03/10/21 02:00 90 21 110/69 94 03/10/21 01:00 94 H 19 108/78 94 03/10/21 00:00 36.6 C 100 H 20 105/70 94 03/09/21 23:00 94 H 18 133/89 98 03/09/21 22:50 91 H 17 125/86 97 03/09/21 22:31 91 H 23 118/85 96 03/09/21 22:00 95 H 22 118/82 91 03/09/21 21:00 97 H 22 109/78 94 03/09/21 20:56 96 H 20 135/92 92 03/09/21 20:10 98 H 17 154/102 H 94 03/09/21 20:00 36.5 C 96 H 19 177/118 H 96 03/09/21 19:45 98 H 03/09/21 19:06 95 H 22 167/74 H 92 (1) Hypertension Hypertension type: unspecified Qualified Code(s): I10 - Essential (primary) hypertension
[2021-03-10 07:18] LABS: Estimated Average Glucose 131 mg/dl; Hemoglobin A1C 6.2 % (4.5-5.6)
[2021-03-10] MEDS: POTASSIUM CITRATE 10 MEQ TAB PO SCH ×2 (07:47→20:00)
[2021-03-10] MEDS: ASPIRIN 81 MG ECTAB PO SCH (07:47)
[2021-03-10] MEDS: GABAPENTIN 300 MG CAP PO SCH (07:48)
[2021-03-10] MEDS: MULTIVITAMIN TAB PO SCH (07:48)
[2021-03-10] MEDS: lisinopril 40 MG TAB PO SCH (07:49)
[2021-03-10] MEDS: TICAGRELOR 90 MG TAB PO SCH ×2 (07:49→20:00)
[2021-03-10] MEDS ORDERED: TICAGRELOR 90 MG TAB PO SCH (09:00)
[2021-03-10] MEDS ORDERED: FUROSEMIDE 40 MG/4 ML VIAL IV SCH (09:00)
[2021-03-10] MEDS ORDERED: METOPROLOL SUCC 50MG EXT REL TAB PO SCH (09:00)
[2021-03-10] MEDS ORDERED: lisinopril 10 MG TAB PO SCH (09:00)
[2021-03-10] MEDS ORDERED: ATORVASTATIN 40 MG TAB PO SCH (09:00)
[2021-03-10] MEDS ORDERED: ASPIRIN 81 MG ECTAB PO SCH (09:00)
--- NOTE | 2021-03-10 09:59 | Hospitalist Progress Note ---
Date of Service March 10, 2021 Assessment & Plan (1) Acute HF (heart failure): Plan: acute systolic heart failure, EF is 40-45%, likely due to NSTEMI and akinesis of affected myocardium lungs are clear, stable on 1L NC with saturations 95% got Lasix 40mg IV yesterday and this morning little diuresis this morning, will pull saleh, hold on further Lasix continue 1500mL fluid restriction for now downgrade to PCU status cardiology will see today (2) Non-ST elevation (NSTEMI) myocardial infarction: Plan: left heart cath in evening on 03/09, found to have significant blockages RONNA placed in RCA and LAD continue aspirin and Brilinta, DAPT for a year Lipitor 80mg daily continue Toprol 100mg daily on nitro paste q6 at this time, SBP is 100, no chest pain defer to cardiology on further treatment keep today, might be ready for discharge to home tomorrow depending on how she feels ambulating (3) Acute respiratory failure with hypoxia: Plan: Suspect secondary to heart failure as above. stable on 1L NC today, can likely be on room air later today hold on further Lasix as she did not make a lot of urine this morning (4) Sinus tachycardia: Plan: Suspect compensatory from heart failure as above. HR in 90's today on Toprol 100mg (5) Hypertension: Plan: SBP is 100 systolic continue Toprol 100mg, Lisinopril 40mg currently with nitro paste q6 (6) Morbid obesity: Plan: Noted (7) Hypokalemia: Plan: slightly low at 3.4, likely from Lasix will give 20mEq BID BMP in morning (8) Obesity, diabetes, and hypertension syndrome: Plan: HbA1c is 6.2%, pre-diabetes will need to work on healthy weight loss, 10-20% would be reasonable goal Plan: VTE Prophyalxis - Diet - heart healthy, diabetic, 1500mL fluid restriction Disposition - PCU status Admission and Anticipated Discharge Date Admission Date: March 09, 2021 Subjective patient doing well this morning, no chest pain she did have two episodes of chest pain last night, relieved with SL nitro and nitro paste labs reviewed this morning, Cr stable, K is 3.4 she is requesting we resume her vitamin D and calcium as she recently had back surgery she is stable on 1L NC, HR and BP stable appreciate notes from cardiology, they will be rounding on her today discussed with her that she will likely go home tomorrow d/w RN, no urine out after Lasix 40mg IV this morning, will hold on further dosing, okay to remove saleh Review of Systems Review of Systems: All systems reviewed & are unremarkable except as noted in Subjective Constitutional: + fatigue; no fever and no weakness Respiratory: no cough, no dyspnea and no dyspnea on exertion Cardiovascular: + chest pain (last night, no pain now) and + chest pain at rest (last night); no palpitations and no edema Gastrointestinal: no abdominal pain, no nausea, no vomiting, no constipation and no diarrhea/loose stools Physical Exam Physical Exam: General: well developed, overweight female, no acute distress, comfortable Neck: supple, trachea midline, normal thyroid Lungs: clear to auscultation bilaterally, normal respiratory effort, no accessory muscle use, no distress Heart: regular S1 and S2, no murmur, peripheral pulses normal, capillary refill normal, no edema Abdomen: soft, NT, ND, + BS, no hepatomegaly, normal to percussion Extremities: normal in appearance, no cyanosis, no petechiae, strength is 5/5 bilaterally Neuro: awake, cooperative, moves all extremities, no focal motor deficits, CN II-XII intact, sensation in extremities intact, normal speech Skin: warm, dry, no rash, normal turgor Psych: Awake, alert oriented x 3, euthymic affect Results & Data Results & Data ([facility]) Vital Signs (Past 12 Hours) Vital Signs Temp Pulse Resp BP Pulse Ox 03/10/21 09:00 103 H 21 99/55 L 93 03/10/21 08:00 36.7 C 101 H 24 105/68 97 03/10/21 07:00 88 22 130/77 97 03/10/21 06:00 89 18 124/84 97 03/10/21 05:00 86 21 125/85 95 03/10/21 04:00 36.7 C 92 H 19 131/90 98 03/10/21 03:00 90 24 116/75 95 03/10/21 02:00 90 21 110/69 94 03/10/21 01:00 94 H 19 108/78 94 03/10/21 00:00 36.6 C 100 H 20 105/70 94 03/09/21 23:00 94 H 18 133/89 98 03/09/21 22:50 91 H 17 125/86 97 03/09/21 22:31 91 H 23 118/85 96 03/09/21 22:00 95 H 22 118/82 91 Laboratory Results Laboratory Results - last 24 hr 03/09/21 03/09/21 03/09/21 08:30 10:38 10:38 WBC RBC Hgb Hct MCV MCH MCHC RDW Std Deviation RDW Coeff of Michelle Plt Count MPV Immature Gran % (Auto) Neut % (Auto) Lymph % (Auto) [facility] % (Auto) Eos % (Auto) Baso % (Auto) Neut # (Auto) Lymph # (Auto) [facility] # (Auto) Eos # (Auto) Baso # (Auto) Immature Gran # (Auto) PT INR Activ Coag Time Kaolin Sodium Potassium Chloride Carbon Dioxide Anion Gap BUN Creatinine Est Cr Clr Drug Dosing Est GFR ( Amer) Est GFR (Non-Af Amer) BUN/Creatinine Ratio Glucose POC Glucose Estimat Average Glucose Hemoglobin A1c Lactate 1.3 Calcium Troponin I B-Natriuretic Peptide 766 H Triglycerides Cholesterol LDL Cholesterol, Calc VLDL Cholesterol, Calc HDL Cholesterol Cholesterol/HDL Ratio Procalcitonin 0.11 Nasal Screen MRSA (PCR) SARS-CoV-2 (PCR) Influenza Type A (PCR) Influenza Type B (PCR) RSV (RT-PCR) 03/09/21 03/09/21 03/09/21 10:38 12:36 15:18 WBC RBC Hgb Hct MCV MCH MCHC RDW Std Deviation RDW Coeff of Michelle Plt Count MPV Immature Gran % (Auto) Neut % (Auto) Lymph % (Auto) [facility] % (Auto) Eos % (Auto) Baso % (Auto) Neut # (Auto) Lymph # (Auto) [facility] # (Auto) Eos # (Auto) Baso # (Auto) Immature Gran # (Auto) PT 11.2 INR 1.1 Activ Coag Time Kaolin 160 H Sodium Potassium Chloride Carbon Dioxide Anion Gap BUN Creatinine Est Cr Clr Drug Dosing Est GFR ( Amer) Est GFR (Non-Af Amer) BUN/Creatinine Ratio Glucose POC Glucose Estimat Average Glucose Hemoglobin A1c Lactate Calcium Troponin I B-Natriuretic Peptide Triglycerides Cholesterol LDL Cholesterol, Calc VLDL Cholesterol, Calc HDL Cholesterol Cholesterol/HDL Ratio Procalcitonin Nasal Screen MRSA (PCR) SARS-CoV-2 (PCR) NEGATIVE Influenza Type A (PCR) Negative Influenza Type B (PCR) Negative RSV (RT-PCR) Negative 03/09/21 03/09/21 03/09/21 16:43 18:15 18:57 WBC RBC Hgb Hct MCV MCH MCHC RDW Std Deviation RDW Coeff of Michelle Plt Count MPV Immature Gran % (Auto) Neut % (Auto) Lymph % (Auto) [facility] % (Auto) Eos % (Auto) Baso % (Auto) Neut # (Auto) Lymph # (Auto) [facility] # (Auto) Eos # (Auto) Baso # (Auto) Immature Gran # (Auto) PT INR Activ Coag Time Kaolin 255 H Sodium Potassium Chloride Carbon Dioxide Anion Gap BUN Creatinine Est Cr Clr Drug Dosing Est GFR ( Amer) Est GFR (Non-Af Amer) BUN/Creatinine Ratio Glucose POC Glucose Estimat Average Glucose Hemoglobin A1c Lactate Calcium Troponin I 20.75 H* B-Natriuretic Peptide Triglycerides Cholesterol LDL Cholesterol, Calc VLDL Cholesterol, Calc HDL Cholesterol Cholesterol/HDL Ratio Procalcitonin Nasal Screen MRSA (PCR) Negative SARS-CoV-2 (PCR) Influenza Type A (PCR) Influenza Type B (PCR) RSV (RT-PCR) 03/09/21 03/10/21 03/10/21 20:09 00:53 05:16 WBC 12.70 H RBC 4.75 Hgb 14.6 Hct 45.6 MCV 96.0 MCH 30.7 MCHC 32.0 RDW Std Deviation 56.0 H RDW Coeff of Michelle 16.2 H Plt Count 216 MPV 10.5 H Immature Gran % (Auto) 0.4 Neut % (Auto) 80.4 Lymph % (Auto) 12.0 [facility] % (Auto) 6.5 Eos % (Auto) 0.5 Baso % (Auto) 0.2 Neut # (Auto) 10.22 H Lymph # (Auto) 1.53 [facility] # (Auto) 0.82 H Eos # (Auto) 0.06 Baso # (Auto) 0.02 Immature Gran # (Auto) 0.05 H PT INR Activ Coag Time Kaolin Sodium Potassium Chloride Carbon Dioxide Anion Gap BUN Creatinine Est Cr Clr Drug Dosing Est GFR ( Amer) Est GFR (Non-Af Amer) BUN/Creatinine Ratio Glucose POC Glucose 122 H Estimat Average Glucose Hemoglobin A1c Lactate Calcium Troponin I 21.14 H* B-Natriuretic Peptide Triglycerides Cholesterol LDL Cholesterol, Calc VLDL Cholesterol, Calc HDL Cholesterol Cholesterol/HDL Ratio Procalcitonin Nasal Screen MRSA (PCR) SARS-CoV-2 (PCR) Influenza Type A (PCR) Influenza Type B (PCR) RSV (RT-PCR) 03/10/21 03/10/21 05:16 05:16 WBC RBC Hgb Hct MCV MCH MCHC RDW Std Deviation RDW Coeff of Michelle Plt Count MPV Immature Gran % (Auto) Neut % (Auto) Lymph % (Auto) [facility] % (Auto) Eos % (Auto) Baso % (Auto) Neut # (Auto) Lymph # (Auto) [facility] # (Auto) Eos # (Auto) Baso # (Auto) Immature Gran # (Auto) PT INR Activ Coag Time Kaolin Sodium 140 Potassium 3.4 L Chloride 106 Carbon Dioxide 27 Anion Gap 7 BUN 22 Creatinine 1.16 Est Cr Clr Drug Dosing 57.1 Est GFR ( Amer) 60.1 Est GFR (Non-Af Amer) 51.9 BUN/Creatinine Ratio 19.0 Glucose 127 H POC Glucose Estimat Average Glucose 131 Hemoglobin A1c 6.2 H Lactate Calcium 9.0 Troponin I 16.45 H* B-Natriuretic Peptide Triglycerides 240 H Cholesterol 162 LDL Cholesterol, Calc 76 VLDL Cholesterol, Calc 48 HDL Cholesterol 38 Cholesterol/HDL Ratio 4.3 Procalcitonin Nasal Screen MRSA (PCR) SARS-CoV-2 (PCR) Influenza Type A (PCR) Influenza Type B (PCR) RSV (RT-PCR) Medications Administered Current Inpatient Medications Acetaminophen (Acetaminophen 325 Mg Tab) 650 mg PO Q4H PRN PRN Reason: MILD Pain (Scale 1,2,3) Stop: 04/08/21 18:17 Aspirin (Aspirin 81 Mg Ectab) 81 mg PO QAM [facility] Stop: 04/09/21 08:59 Last Admin: 03/10/21 07:47 Dose: 81 mg Documented by: Atorvastatin Calcium (Atorvastatin 40 Mg Tab) 80 mg PO QPM [facility] Stop: 04/08/21 20:59 Last Admin: 03/09/21 20:54 Dose: 80 mg Documented by: Calcium Carbonate (Calcium Carbonate 1250mg Tab) 1,250 mg PO BID [facility] Stop: 04/09/21 09:59 Gabapentin (Gabapentin 300 Mg Cap) 300 mg PO QAM [facility] Stop: 04/09/21 08:59 Last Admin: 03/10/21 07:48 Dose: 300 mg Documented by: Lisinopril (Lisinopril 40 Mg Tab) 40 mg PO DAILY [facility] Stop: 04/09/21 08:59 Last Admin: 03/10/21 07:49 Dose: 40 mg Documented by: Metoprolol Succinate (Metoprolol Succ 50mg Ext Rel Tab) 100 mg PO DAILY [facility] Stop: 04/09/21 08:59 Last Admin: 03/10/21 07:48 Dose: 100 mg Documented by: Miscellaneous (Icu Protocol For Hyperglycemia) 1 ea N/A PRN PRN; Protocol PRN Reason: Hyperglycemia Protocol Stop: 03/11/21 18:28 Multivitamins (Multivitamin Tab) 1 tab PO QAM [facility] Stop: 04/09/21 08:59 Last Admin: 03/10/21 07:48 Dose: 1 tab Documented by: Nitroglycerin (Nitroglycerin Sl 0.4 Mg/Tab Tab) 0.4 mg SL PRN PRN PRN Reason: Chest Pain Stop: 04/08/21 18:17 Last Admin: 03/09/21 23:28 Dose: 0.4 mg Documented by: Nitroglycerin (Nitroglycerin 2% Ointment 30gm Tube) 1 inch EXT Q6H [facility] Stop: 04/08/21 22:59 Last Admin: 03/10/21 06:23 Dose: 1 inch Documented by: Potassium Citrate (Potassium Citrate 10 Meq Tab) 20 meq PO BID [facility] Stop: 04/09/21 20:59 Ticagrelor (Ticagrelor 90 Mg Tab) 90 mg PO BID [facility] Stop: 04/08/21 20:59 Last Admin: 03/10/21 07:49 Dose: 90 mg Documented by: Vitamin D (Cholecalciferol 1,000 Units 25 Mcg Tab) 2,000 units PO DAILY [facility] Stop: 04/09/21 09:59 PG Care Time/CCT Total # of Minutes Spent Total Time Spent with Patient: Total time spent is greater than 50% in coordination of care (as documented) at patient's floor/unit and/or counseling patient: Coding Level of Care Code 99957 Subseq Hosp Care Lvl 3 Diagnoses Acute HF (heart failure) I50.9 Non-ST elevation (NSTEMI) myocardial infarction I21.4 Acute respiratory failure with hypoxia J96.01 Sinus tachycardia R00.0 Hypertension I10 Hypertension type: unspecified Morbid obesity E66.01 Hypokalemia E87.6 Obesity, diabetes, and hypertension syndrome E11.69; E11.59; E66.9; I15.2 (1) Hypertension Hypertension type: unspecified Qualified Code(s): I10 - Essential (primary) hypertension
[2021-03-10] MEDS ORDERED: POTASSIUM CHLORIDE CRTAB 20 MEQ TABCR PO STA (10:00)
[2021-03-10] MEDS: CALCIUM CARBONATE 1250MG TAB PO SCH ×2 (11:40→20:00)
[2021-03-10] MEDS: CHOLECALCIFEROL 1,000 UNITS 25 MCG TAB PO SCH (11:40)
--- NOTE | 2021-03-10 13:53 | Cardiology Progress Note ---
Date of Service March 10, 2021 Assessment & Plan (1) Non-ST elevation (NSTEMI) myocardial infarction: (2) Hypertension: (3) Hyperlipidemia: (4) S/P coronary artery stent placement: (5) CAD (coronary artery disease): (6) Acute systolic (congestive) heart failure: Plan: ASSESSMENT/PLAN: 1. NSTEMI: Underwent PCI of culprit vessel LAD and then RCA. Angina has resolved. Continue aspirin 81 mg daily indefinitely. Continue Brilinta for at least 1 year. Continue high-intensity statin therapy, beta-karolina, and RADHA- inhibitor. Cardiac rehabilitation recommended. Can discontinue nitroglycerin paste. 2. Acute systolic CHF: She now appears euvolemic. LV systolic function mildly to moderately reduced. CHF presentation likely due to being acutely ischemic. Diuretics now discontinued. Continue metoprolol succinate and RADHA-inhibitor. 3. Ischemic cardiomyopathy: LV systolic function mildly to moderately reduced. Will repeat echo as an outpatient. Continue metoprolol succinate and RADHA- inhibitor. Recommend increasing metoprolol succinate to 150 mg daily. She does not meet criteria for ICD for primary prevention. Euvolemic on exam. 4. CAD s/p LAD and RCA PCI: No further angina today. Continue dual anti- platelet therapy, high-intensity statin therapy, beta-karolina, and RADHA-inhibitor as above. Recommend p.r.n. nitroglycerin on discharge. 5. Hypertension: Blood pressure well controlled. Continue regimen as above. 6. Dyslipidemia: Continue high-intensity statin therapy. 7. Disposition: Overall, much improved compared to presentation. Would recommend hospitalization for at least 48 hours from onset of NV. If no complications or significant arrhythmia, can then be discharged. Recommend follow-up next week in the cardiology office. Cardiac rehabilitation can then be set up. I will be away from the hospital for the next several days. Please call the on-call patient account representative for any questions or concerns. She should ambulate in the hallway tomorrow prior to d/c. Plan of care communicated with Dr. Alves of the primary hospitalist service. Admission and Anticipated Discharge Date Admission Date: March 09, 2021 Subjective Patient was seen this morning in room 111. She had chest discomfort and back pain overnight with some shortness of breath. She was treated with nitroglycerin but reported no benefit. Symptoms were occurring while sitting upright. She received morphine and symptoms resolved. She has not had any further chest pain or back pain. She denies any further shortness of breath. She denies orthopnea, syncope, near-syncope, palpitations, edema, or bleeding. Review of systems: As above. Physical Exam Physical Exam: Gen.: No acute distress. Alert and oriented. HEENT: Anicteric sclera. Neck: Thick neck. Cardiac: PMI was nonpalpable. No ventricular heave. Regular. No audible murmurs, rubs, or gallops. Pulmonary: Scant rales at the left base, otherwise clear to auscultation bilaterally. Abdomen: Soft, nontender, nondistended, with normoactive bowel sounds. No bruits noted. Extremities: 2+ radial pulses bilaterally. Right radial cath site was clean, dry, and intact without erythema or discharge. 2+ posterior tibialis pulses bilaterally. No significant pitting edema. No cyanosis. Psychiatric: Affect appears appropriate. Results & Data ([facility]) Vital Signs (Past 12 Hours) Vital Signs Temp Pulse Resp BP Pulse Ox 03/10/21 13:00 96 H 25 H 109/62 92 03/10/21 12:00 97 H 27 H 122/70 94 03/10/21 11:00 95 H 20 114/80 97 03/10/21 10:00 94 H 21 100/70 94 03/10/21 09:00 103 H 21 99/55 L 93 03/10/21 08:00 36.7 C 101 H 24 105/68 97 03/10/21 07:00 88 22 130/77 97 03/10/21 06:00 89 18 124/84 97 03/10/21 05:00 86 21 125/85 95 03/10/21 04:00 36.7 C 92 H 19 131/90 98 03/10/21 03:00 90 24 116/75 95 03/10/21 02:00 90 21 110/69 94 Intake & Output 03/08/21 03/09/21 03/10/21 03/11/21 06:59 06:59 06:59 06:59 Intake Total 519 / 519 170 / 170 Output Total 2975 / 2975 125 / 125 Balance -2456 / -2456 45 / 45 Weight 203 lb 11.314 oz Laboratory Results Laboratory Results - last 24 hr 03/09/21 03/09/21 03/09/21 15:18 16:43 18:15 WBC RBC Hgb Hct MCV MCH MCHC RDW Std Deviation RDW Coeff of Michelle Plt Count MPV Immature Gran % (Auto) Neut % (Auto) Lymph % (Auto) [place] % (Auto) Eos % (Auto) Baso % (Auto) Neut # (Auto) Lymph # (Auto) [place] # (Auto) Eos # (Auto) Baso # (Auto) Immature Gran # (Auto) Activ Coag Time Kaolin 160 H 255 H Sodium Potassium Chloride Carbon Dioxide Anion Gap BUN Creatinine Est Cr Clr Drug Dosing Est GFR ( Amer) Est GFR (Non-Af Amer) BUN/Creatinine Ratio Glucose POC Glucose Estimat Average Glucose Hemoglobin A1c Calcium Troponin I Triglycerides Cholesterol LDL Cholesterol, Calc VLDL Cholesterol, Calc HDL Cholesterol Cholesterol/HDL Ratio Nasal Screen MRSA (PCR) Negative 03/09/21 03/09/21 03/10/21 18:57 20:09 00:53 WBC RBC Hgb Hct MCV MCH MCHC RDW Std Deviation RDW Coeff of Michelle Plt Count MPV Immature Gran % (Auto) Neut % (Auto) Lymph % (Auto) [place] % (Auto) Eos % (Auto) Baso % (Auto) Neut # (Auto) Lymph # (Auto) [place] # (Auto) Eos # (Auto) Baso # (Auto) Immature Gran # (Auto) Activ Coag Time Kaolin Sodium Potassium Chloride Carbon Dioxide Anion Gap BUN Creatinine Est Cr Clr Drug Dosing Est GFR ( Amer) Est GFR (Non-Af Amer) BUN/Creatinine Ratio Glucose POC Glucose 122 H Estimat Average Glucose Hemoglobin A1c Calcium Troponin I 20.75 H* 21.14 H* Triglycerides Cholesterol LDL Cholesterol, Calc VLDL Cholesterol, Calc HDL Cholesterol Cholesterol/HDL Ratio Nasal Screen MRSA (PCR) 03/10/21 03/10/21 03/10/21 05:16 05:16 05:16 WBC 12.70 H RBC 4.75 Hgb 14.6 Hct 45.6 MCV 96.0 MCH 30.7 MCHC 32.0 RDW Std Deviation 56.0 H RDW Coeff of Michelle 16.2 H Plt Count 216 MPV 10.5 H Immature Gran % (Auto) 0.4 Neut % (Auto) 80.4 Lymph % (Auto) 12.0 [place] % (Auto) 6.5 Eos % (Auto) 0.5 Baso % (Auto) 0.2 Neut # (Auto) 10.22 H Lymph # (Auto) 1.53 [place] # (Auto) 0.82 H Eos # (Auto) 0.06 Baso # (Auto) 0.02 Immature Gran # (Auto) 0.05 H Activ Coag Time Kaolin Sodium 140 Potassium 3.4 L Chloride 106 Carbon Dioxide 27 Anion Gap 7 BUN 22 Creatinine 1.16 Est Cr Clr Drug Dosing 57.1 Est GFR ( Amer) 60.1 Est GFR (Non-Af Amer) 51.9 BUN/Creatinine Ratio 19.0 Glucose 127 H POC Glucose Estimat Average Glucose 131 Hemoglobin A1c 6.2 H Calcium 9.0 Troponin I 16.45 H* Triglycerides 240 H Cholesterol 162 LDL Cholesterol, Calc 76 VLDL Cholesterol, Calc 48 HDL Cholesterol 38 Cholesterol/HDL Ratio 4.3 Nasal Screen MRSA (PCR) Diagnostic Findings Telemetry personally reviewed: No arrhythmia. Sinus rhythm. Peak troponin was 21.14. Cardiac catheterization 03/09/2021: Coronary angiography: 1. Left main: No significant CAD. 2. Left anterior descending: Proximal LAD luminal irregularities. Mid LAD 98% stenosis. Small D1 and D2 vessels. 3. Circumflex: No significant CAD within the circumflex and large OM1. 4. Right coronary artery: Dominant vessel. Proximal RCA long segment 70% stenosis. Mid RCA 30%. PDA without significant CAD. Left heart catheterization: 1. Left ventriculography was not performed. 2. Moderately elevated LVEDP. LVEDP 24 mmHg. 3. No aortic stenosis. PCI: 1. Successful PCI of mid LAD with single drug-eluting stent (3.5 x 18 mm Xience; postdilated with 4.0 NC). 2. Successful PCI of proximal to mid RCA with single drug-eluting stent (2.75 x 33 mm Xience; postdilated with 3.5 NC). Medications Administered Current Inpatient Medications Acetaminophen (Acetaminophen 325 Mg Tab) 650 mg PO Q4H PRN PRN Reason: MILD Pain (Scale 1,2,3) Stop: 04/08/21 18:17 Aspirin (Aspirin 81 Mg Ectab) 81 mg PO QAM [facility] Stop: 04/09/21 08:59 Last Admin: 03/10/21 07:47 Dose: 81 mg Documented by: Atorvastatin Calcium (Atorvastatin 40 Mg Tab) 80 mg PO QPM [facility] Stop: 04/08/21 20:59 Last Admin: 03/09/21 20:54 Dose: 80 mg Documented by: Calcium Carbonate (Calcium Carbonate 1250mg Tab) 1,250 mg PO BID [facility] Stop: 04/09/21 09:59 Last Admin: 03/10/21 11:40 Dose: 1,250 mg Documented by: Gabapentin (Gabapentin 300 Mg Cap) 300 mg PO QAM [facility] Stop: 04/09/21 08:59 Last Admin: 03/10/21 07:48 Dose: 300 mg Documented by: Lisinopril (Lisinopril 40 Mg Tab) 40 mg PO DAILY [facility] Stop: 04/09/21 08:59 Last Admin: 03/10/21 07:49 Dose: 40 mg Documented by: Metoprolol Succinate (Metoprolol Succ 50mg Ext Rel Tab) 100 mg PO DAILY [facility] Stop: 04/09/21 08:59 Last Admin: 03/10/21 07:48 Dose: 100 mg Documented by: Multivitamins (Multivitamin Tab) 1 tab PO QAM [facility] Stop: 04/09/21 08:59 Last Admin: 03/10/21 07:48 Dose: 1 tab Documented by: Nitroglycerin (Nitroglycerin Sl 0.4 Mg/Tab Tab) 0.4 mg SL PRN PRN PRN Reason: Chest Pain Stop: 04/08/21 18:17 Last Admin: 03/09/21 23:28 Dose: 0.4 mg Documented by: Potassium Citrate (Potassium Citrate 10 Meq Tab) 20 meq PO BID [facility] Stop: 04/09/21 20:59 Ticagrelor (Ticagrelor 90 Mg Tab) 90 mg PO BID [facility] Stop: 04/08/21 20:59 Last Admin: 03/10/21 07:49 Dose: 90 mg Documented by: Vitamin D (Cholecalciferol 1,000 Units 25 Mcg Tab) 2,000 units PO DAILY [facility] Stop: 04/09/21 09:59 Last Admin: 03/10/21 11:40 Dose: 2,000 units Documented by: PG Care Time/CCT Total # of Minutes Spent Total Time Spent with Patient: Total time spent is greater than 50% in coordination of care (as documented) at patient's floor/unit and/or counseling patient: Coding Level of Care Code 34938 Subseq Hosp Care Lvl 3 Diagnoses Non-ST elevation (NSTEMI) myocardial infarction I21.4 Hypertension I10 Hypertension type: unspecified Hyperlipidemia E78.5 S/P coronary artery stent placement Z95.5 CAD (coronary artery disease) I25.10 Acute systolic (congestive) heart failure I50.21 (1) Hypertension Hypertension type: unspecified Qualified Code(s): I10 - Essential (primary) hypertension
--- NOTE | 2021-03-10 18:49 | Electrocardiogram Report ---
Test Reason : Blood Pressure : / mmHG Vent. Rate : 105 BPM Atrial Rate : 105 BPM P-R Int : 130 ms QRS Dur : 132 ms QT Int : 368 ms P-R-T Axes : 052 011 040 degrees QTc Int : 486 ms Sinus tachycardia Right bundle branch block Inferior infarct , age undetermined Anterolateral infarct , age undetermined Abnormal ECG When compared with ECG of 02-JAN-2019 11:38, Inferior infarct is now Present Anterolateral infarct is now Present Confirmed by Daniel Regalado ([id number]) on 03/10/2021 6:49:26 PM Referred By: REFERRED SELF Confirmed By:Daniel Regalado
--- NOTE | 2021-03-10 18:58 | Electrocardiogram Report ---
Test Reason : Blood Pressure : / mmHG Vent. Rate : 113 BPM Atrial Rate : 113 BPM P-R Int : 134 ms QRS Dur : 118 ms QT Int : 360 ms P-R-T Axes : 053 161 -21 degrees QTc Int : 493 ms Poor data quality, interpretation may be adversely affected Sinus tachycardia Possible Left atrial enlargement Right bundle branch block Inferior infarct (cited on or before 09-MAR-2021) Anterolateral infarct (cited on or before 09-MAR-2021) Abnormal ECG When compared with ECG of 09-MAR-2021 08:13, No significant change Confirmed by Daniel Regalado ([id number]) on 03/10/2021 6:57:56 PM Referred By: REFERRED SELF Confirmed By:Daniel Regalado
--- NOTE | 2021-03-10 18:59 | Electrocardiogram Report ---
Test Reason : Blood Pressure : / mmHG Vent. Rate : 117 BPM Atrial Rate : 117 BPM P-R Int : 122 ms QRS Dur : 128 ms QT Int : 334 ms P-R-T Axes : 034 150 -19 degrees QTc Int : 465 ms Poor data quality, interpretation may be adversely affected Sinus tachycardia with Premature atrial complexes Right bundle branch block Inferior infarct (cited on or before 09-MAR-2021) Anterior infarct (cited on or before 09-MAR-2021) Abnormal ECG When compared with ECG of 09-MAR-2021 10:09, Premature atrial complexes are now Present Confirmed by Daniel Regalado ([id number]) on 03/10/2021 6:58:55 PM Referred By: REFERRED SELF Confirmed By:Daniel Regalado
--- NOTE | 2021-03-10 19:00 | Electrocardiogram Report ---
Test Reason : Blood Pressure : / mmHG Vent. Rate : 113 BPM Atrial Rate : 113 BPM P-R Int : 128 ms QRS Dur : 120 ms QT Int : 358 ms P-R-T Axes : 020 124 013 degrees QTc Int : 491 ms Poor data quality, interpretation may be adversely affected Sinus tachycardia Possible Left atrial enlargement Right bundle branch block Inferior infarct (cited on or before 09-MAR-2021) Anterior infarct Abnormal ECG When compared with ECG of 09-MAR-2021 10:19, Premature atrial complexes are no longer Present Confirmed by Daniel Regalado ([id number]) on 03/10/2021 7:00:27 PM Referred By: REFERRED SELF Confirmed By:Daniel Regalado
--- NOTE | 2021-03-10 19:00 | Electrocardiogram Report ---
Test Reason : Blood Pressure : / mmHG Vent. Rate : 113 BPM Atrial Rate : 113 BPM P-R Int : 112 ms QRS Dur : 128 ms QT Int : 362 ms P-R-T Axes : 023 096 -25 degrees QTc Int : 496 ms Poor data quality, interpretation may be adversely affected Sinus tachycardia with Premature atrial complexes Right bundle branch block Inferior infarct (cited on or before 09-MAR-2021) Anterior infarct (cited on or before 09-MAR-2021) Abnormal ECG When compared with ECG of 09-MAR-2021 10:17, No significant change was found Confirmed by Daniel Regalado ([id number]) on 03/10/2021 6:59:55 PM Referred By: REFERRED SELF Confirmed By:Daniel Regalado
--- NOTE | 2021-03-10 19:00 | Electrocardiogram Report ---
Test Reason : Blood Pressure : / mmHG Vent. Rate : 116 BPM Atrial Rate : 116 BPM P-R Int : 130 ms QRS Dur : 120 ms QT Int : 364 ms P-R-T Axes : 019 126 -05 degrees QTc Int : 505 ms Poor data quality, interpretation may be adversely affected Sinus tachycardia Possible Left atrial enlargement Right bundle branch block Inferior infarct (cited on or before 09-MAR-2021) Anterior infarct (cited on or before 09-MAR-2021) Abnormal ECG When compared with ECG of 09-MAR-2021 10:25, No significant change Confirmed by Daniel Regalado ([id number]) on 03/10/2021 7:00:46 PM Referred By: REFERRED SELF Confirmed By:Daniel Regalado
--- NOTE | 2021-03-10 19:04 | Electrocardiogram Report ---
Test Reason : Blood Pressure : / mmHG Vent. Rate : 120 BPM Atrial Rate : 120 BPM P-R Int : 136 ms QRS Dur : 130 ms QT Int : 382 ms P-R-T Axes : 020 116 006 degrees QTc Int : 539 ms Poor data quality, interpretation may be adversely affected Sinus tachycardia Possible Left atrial enlargement Right bundle branch block Anterior infarct (cited on or before 09-MAR-2021) Inferior infarct Abnormal ECG When compared with ECG of 09-MAR-2021 10:26, No significant change Confirmed by Daniel Regalado ([id number]) on 03/10/2021 7:03:33 PM Referred By: REFERRED SELF Confirmed By:Daniel Regalado
[2021-03-10] MEDS: ATORVASTATIN 40 MG TAB PO SCH (19:59)
--- NOTE | 2021-03-10 21:17 | Electrocardiogram Report ---
Test Reason : Blood Pressure : / mmHG Vent. Rate : 095 BPM Atrial Rate : 095 BPM P-R Int : 122 ms QRS Dur : 124 ms QT Int : 400 ms P-R-T Axes : 031 -70 010 degrees QTc Int : 502 ms Normal sinus rhythm Indeterminate axis Right bundle branch block Inferior infarct Anterior infarct Abnormal ECG When compared with ECG of 09-MAR-2021 10:28, No significant change Confirmed by Daniel Regalado ([id number]) on 03/10/2021 9:17:07 PM Referred By: REFERRED SELF Confirmed By:Daniel Regalado
--- NOTE | 2021-03-10 21:20 | Electrocardiogram Report ---
Test Reason : Blood Pressure : / mmHG Vent. Rate : 093 BPM Atrial Rate : 093 BPM P-R Int : 128 ms QRS Dur : 124 ms QT Int : 412 ms P-R-T Axes : 034 -72 060 degrees QTc Int : 512 ms Normal sinus rhythm Left axis deviation Right bundle branch block Inferior infarct (cited on or before 09-MAR-2021) Anterior infarct (cited on or before 09-MAR-2021) Abnormal ECG When compared with ECG of 09-MAR-2021 22:18, No significant change Confirmed by Daniel Regalado ([id number]) on 03/10/2021 9:20:27 PM Referred By: REFERRED SELF Confirmed By:Daniel Regalado
[2021-03-11 06:25] LABS: Hematocrit (blood only) 42.2 % (37-47); Hemoglobin 13.7 g/dL (12.0-16.0); Mean Corpuscular Hemoglobin 30.9 pg (25-34); Mean Corpuscular Hgb Conc 32.5 g/dL (32-36); Mean Corpuscular Volume 95.3 fL (80-100); Mean Platelet Volume 10.4 fL (7.4-10.4); Platelet Count 212 K/uL (130-400); RDW Coefficient of Variation 16.2 % (11.5-14.5); RDW Standard Deviation 56.3 fL (36.4-46.3); Red Blood Count 4.43 M/uL (4.2-5.4); White Blood Count 12.17 K/uL (4.8-10.8)
[2021-03-11 06:48] LABS: BUN Creatinine Ratio 29.7 (10-20); Calcium 9.9 mg/dl (8.5-10.1); Creatinine Clr Calc Pharmacy 59.8 ml/min; Est GFR (African American) 63.4 ml/min; Est GFR (Non-African American) 54.7 ml/min; Potassium 3.9 mmol/L (3.5-5.1)
[2021-03-11] MEDS: CALCIUM CARBONATE 1250MG TAB PO SCH (08:45)
[2021-03-11] MEDS: POTASSIUM CITRATE 10 MEQ TAB PO SCH (08:46)
[2021-03-11] MEDS: TICAGRELOR 90 MG TAB PO SCH (08:46)
[2021-03-11] MEDS: GABAPENTIN 300 MG CAP PO SCH (08:47)
[2021-03-11] MEDS: lisinopril 40 MG TAB PO SCH (08:47)
[2021-03-11] MEDS: CHOLECALCIFEROL 1,000 UNITS 25 MCG TAB PO SCH (08:47)
[2021-03-11] MEDS: MULTIVITAMIN TAB PO SCH (08:49)
[2021-03-11] MEDS: ASPIRIN 81 MG ECTAB PO SCH (08:49)
--- NOTE | 2021-03-11 08:59 | Discharge Summary ---
Date of Service March 11, 2021 Admission HPI Per Admitting Provider The patient is a 60-year-old woman without a known history of cardiac disease who had presented with several days of intermittent chest discomfort. She had significant breathing difficulty at the time of admission was found to be in pulmonary edema. She had elevated cardiac biomarkers in a concerning EKG. Echocardiogram obtained shortly after admission also revealed reduced LV systolic function and regional wall motion abnormalities involving the anterior wall. She was stabilized in the emergency room primarily through diuresis and taken urgently to the cardiac catheterization suite where she was found to have a significant lesion in the left anterior descending. She was also noted to have a lesion in the right coronary artery. Stenting was performed in the LAD and proximal RCA. Patient tolerated procedure well but over the course of the subsequent evening she had continued symptoms discomfort that eventually responded to narcotics. The remainder of her hospitalization was unremarkable. The time of discharge she was breathing well. She was ambulatory around the room without significant dizziness, lightheadedness or dyspnea. She did not describe orthopnea. No recurrent chest pain. No sense of palpitation. Admission Exam Per Admitting Provider Constitutional: well developed and + acute distress (respiratory); + not well nourished Eyes: + anicteric sclerae; normal pupil size ENMT: external ear and nose normal, oropharynx normal Neck: trachea midline, no thyromegaly Respiratory: + respiratory distress, + retractions, + uses accessory muscles, + cough (occasional), able to speak in complete sentences (short) and + tachypneic; expiratory phase not prolonged, no audible wheezes and no stridor Auscultation: + rhonchi (throughout); no diminished lung sounds and no wheezes Cardiovascular: Rate/Rhythm: regular rhythm and + tachycardic Heart Sounds: no murmur Vessels: posterior tibial pulses present, dorsalis pedis pulses present and radial pulses present Extremities: normal capillary refill and + pedal edema (trace pre-tibial); no calf tenderness Gastrointestinal (Abdomen):L Inspection/Auscultation: normal bowel sounds Percussion/Palpation: abdomen soft; abdomen nontender, no guarding and abdomen not rigid Musculoskeletal: no cyanosis or clubbing, extremities motor strength 5/5 Skin: no rashes, warm and dry Neurologic: moves all extremities and awake; not confused Psychiatric: A+Ox3, euthymic affect Principal Diagnosis Non ST-elevation myocardial infarction Acute systolic heart failure Discharge Exam She is alert and oriented x3. Mood affect appear normal. She answered all questions appropriately. HEENT: Sclerae are anicteric. Pupils are equal and reactive to light and accommodation. Extraocular movements were intact. Neuro: Cranial nerves intact Lungs: Lungs are clear to auscultation bilaterally. There are no rales wheezes or rhonchi. She has normal respiratory effort without use of accessory muscles. There is normal pulmonary excursion. Cardiac: The rhythm was regular. S1 and S2 were normal. There are no murmurs on examination. The PMI was not markedly displaced on palpation. Extremities: Patient has bilateral radial pulses that are equal in intensity. No swelling of the right wrist or arm. Normal perfusion of the right hand. is no evidence cyanosis or clubbing. There was no evidence of significant peripheral edema bilaterally. Skin: There are no rashes noted on examination today. Discharge Data Allergies Allergy/AdvReac Type Severity Reaction Status Date / Time amoxicillin Allergy Intermediate Rash Verified 03/09/21 11:16 ampicillin Allergy Intermediate Rash Verified 03/09/21 11:16 Penicillins Allergy Intermediate Rash Verified 03/09/21 11:16 Consultations 03/09/21 10:35 ED Decision to Admit Stat 03/09/21 11:19 Consult Pourer Crane Ladle Routine 03/09/21 18:27 Consult Cardiac Rehabilitation Routine 03/09/21 19:45 Consult Cardiology Routine Procedures Performed Operation Date: 03/09/21 15:00 Actual Procedures p Drug Eluting Stent SGl Vessel - Kishor Chaney MD s Cineradiography w/Routine Exam - Kishor Chaney MD s Drug Eluting Stent each ADDTL Vessel - Kishor Chaney MD p Cath, Left with Cors and Vent - Daniel Regalado MD Ordered Studies 03/09/21 08:50 CT angio chest PE protocol Stat 03/09/21 14:39 CL Cath Imgs for PACS use only Stat Hospital Course (1) Non-ST elevation (NSTEMI) myocardial infarction: (2) Hypertension: (3) Hyperlipidemia: (4) S/P coronary artery stent placement: (5) CAD (coronary artery disease): (6) Acute systolic (congestive) heart failure: ASSESSMENT/PLAN: 1. NSTEMI: Underwent PCI of culprit vessel LAD and then RCA. No recurrent ches t discomfort at the time of discharge. She will continue dual anti-platelet therapy for 1 year. Currently on aspirin 81 mg and Brilinta 90 mg twice daily. 2. Acute systolic CHF: She now appears euvolemic. LV systolic function mildly to moderately reduced (40%). CHF presentation likely due to being acutely ischemic. Continue metoprolol succinate and RADHA-inhibitor. 3. Ischemic cardiomyopathy: LV systolic function mildly to moderately reduced. Will repeat echo as an outpatient. Continue metoprolol succinate and RADHA- inhibitor. Lung examination benign at the time of discharge. Ambulating without dyspnea. No orthopnea last evening. 4. CAD s/p LAD and RCA PCI: No further angina. Continue dual anti-platelet therapy and high-dose atorvastatin 5. Hypertension: Blood pressure well controlled. Continue current regimen with metoprolol and lisinopril. The patient was advised to follow low-sodium diet. 6. Dyslipidemia: Continue high-intensity statin therapy. 7. Disposition: The patient will follow-up in the cardiology clinic next week. We will contact cardiac rehab for referral. She was advised to refrain from strenuous physical activity until seen in the clinic. We did discuss restrictions involving her access site in the right wrist. The patient was also noted to have pre diabetes based on her hemoglobin A1c mildly elevated blood sugars. We discussed the benefits of weight loss and I did recommend a low- sodium diet. Total Time Total Time Spent Total Time Spent (In Minutes): 31 Total Time Includes: Examination of the Patient, Discharge Planning, Medication Reconciliation and Communication With Other Providers Discharge Plan Discharge Items Patient Disposition: Home - Self-Care Reason For Visit: NSTEMI, ACUTE HEART FAILURE Discharge Diagnosis: Non ST elevation myocardial infarction Condition on Discharge: Good Activity: Per Instructions section Activity Comment: No vigorous use of the right wrist or hand for 4 days Lifting: No more than 5 pounds Lifting Comment: No more than 5 lb with the right arm Bathing: No limitations Sexual Activity: Wait until after follow-up appointment Exercise/Sports: Wait until after follow-up appointment Driving/Machine Use: Resume 3 days after discharge Non-emergency contact: Outgoing Inspector Call non-emergency contact if: you have any medication questions and your symptoms worsen Follow-up/Referrals: Daniel Regalado MD [Physician] - 03/24/21 8:45 am Michelle Bowden MD [Primary Care Provider] - Diet: Heart Healthy Add Attending Provider Instructions: ACTIVITY RECOMMENDATIONS: Excess manipulation of the wrist should be avoided for the next 24-48 hours. * No lifting over 2 pounds (approximately a 1/2 gallon of milk) with the utilized arm for 24 hours. * No strenuous activity such as bowling or tennis for 3 days. * Keep the site of the procedure covered with a bandage for 24 hours. *You may shower the day after the procedure. Do not take a tub bath or submerge the puncture site in water for the next 3 days. *Do not operate any motorized equipment for 3 days. SPECIAL CARE INSTRUCTIONS: The site may be slightly bruised and sore following your procedure. Should any of the following occur, contact the Dr. who performed your procedure. 1. Redness/inflammation, swelling, chills, or fever, or colored drainage at procedure site within 3-7 days after your procedure. 2. Coldness, discoloration, ongoing numbness, severe pain, or swelling. Expect mild tingling of hand and tenderness at the puncture site for up to three days. If this persists beyond three days, or other symptoms develop, notify the Dr. who performed your procedure. BLEEDING: If the procedure site on your wrist begins to bleed, do not panic 1. Place 1 or 2 fingers firmly just slightly above the insertion site to stop t he bleeding. You may be able to feel your pulse as you hold pressure. 2. Lift your finger after 5 minutes to see if the bleeding has stopped. 3. Once the bleeding has stopped, gently wipe the wrist area clean with a bandage. * If the bleeding from your wrist does not stop after 10 minutes, or if there is a large amount of bleeding or spurting, call 911 (do not drive yourself to the hospital). SKIN IRRITATION: * You may experience some redness and/or swelling in the area where radiation was administered. If any skin irritation occurs, please contact your family physician. FOLLOW UP VISIT: 1. Follow up in Dr. Regalado's office in 1 week. [phone] (call this number if you don't hear from the office by Saturday) 2. Keep any scheduled doctor appointments. Pending Studies at Discharge: No Stand-Alone Forms: [facility], Smoking Cessation Medications and DC Order Prescriptions: New atorvastatin 40 mg Tablet 80 mg PO QPM Qty: 90 RF: 3 metoprolol succinate 50 mg Tablet Extended Release 24 Hr 150 mg PO DAILY Qty: 90 RF: 3 aspirin 81 mg Tablet,Delayed Release (Dr/Ec) 81 mg PO QAM Qty: 90 RF: 3 nitroglycerin [Nitrostat] 0.4 mg Tablet, Sublingual 0.4 mg sublingual PRN PRN (Reason: chest pain) Qty: 30 RF: 3 Brilinta 90 mg Tablet 90 mg PO BID Qty: 180 RF: 3 Continued lisinopril 40 mg tablet 40 mg PO DAILY Qty: 90 RF: 1 potassium citrate 10 mEq (1,080 mg) tablet extended release 10 meq PO BID Qty: 180 RF: 1 cholecalciferol (vitamin D3) 50 mcg (2,000 unit) capsule 50 mcg PO DAILY RF: 0 multivitamin Tablet 1 tab PO QAM RF: 0 calcium carbonate [Calcium 600] 600 mg calcium (1,500 mg) Tablet 600 mg PO BID RF: 0 gabapentin 300 mg capsule 300 mg PO QAM RF: 0 Discontinued metoprolol succinate 100 mg tablet extended release 24 hr 100 mg PO DAILY Qty: 30 RF: 2 atorvastatin 20 mg tablet 20 mg PO QPM Qty: 90 RF: 1 Discharge Orders: Discharge Order (Routine); Ordered 03/11/21 Ordered By: Miguelangel Flores/Other Patient Handouts: Prediabetes, 5 Steps for Eating Healthier Admission Data Admit Date/Time: 03/09/21 11:19 Attending Provider: Long Malloy Admit Provider: Ba Edmond Primary Care Provider: Michelle Bowden Other Providers: Ba Edmond ; Mauricio Rucker ; Daniel Regalado Coding Level of Care Code D/C DAY MANAGEMENT >30 MINS Diagnoses Non-ST elevation (NSTEMI) myocardial infarction I21.4 Hypertension I10 Hypertension type: unspecified Hyperlipidemia E78.5 S/P coronary artery stent placement Z95.5 CAD (coronary artery disease) I25.10 Acute systolic (congestive) heart failure I50.21
[2021-03-11] MEDS ORDERED: METOPROLOL SUCC 50MG EXT REL TAB PO SCH (09:00)
== END 2021-03-11 10:06 | disposition home or self-care (01) | DRG 246 ==
LOC: ED 07:59 → SUATTDRO 11:19 → ASU 14:43 → CC 14:43 → SUATTDRO 14:44 → 1E 14:44 → 2S 03-10 16:20
DX: E66.01 Morbid (severe) obesity due to excess calories; Z88.0 Allergy status to penicillin; R00.0 Tachycardia, unspecified; E78.5 Hyperlipidemia, unspecified; J96.01 Acute respiratory failure with hypoxia; I21.4 Non-ST elevation (NSTEMI) myocardial infarction; Y92.239 Unspecified place in hospital as the place of occurrence of the external cause; I25.110 Atherosclerotic heart disease of native coronary artery with unstable angina pectoris; I25.5 Ischemic cardiomyopathy; T50.1X5A Adverse effect of loop [high-ceiling] diuretics, initial encounter; I50.21 Acute systolic (congestive) heart failure; Z68.41 Body mass index [BMI] 40.0-44.9, adult; Z83.3 Family history of diabetes mellitus; E87.6 Hypokalemia; I11.0 Hypertensive heart disease with heart failure; Z96.662 Presence of left artificial ankle joint; J81.0 Acute pulmonary edema; Z88.1 Allergy status to other antibiotic agents